=== PATIENT | male | born 1945 | race Two or more races ===

== ENCOUNTER 2020-09-23 14:52 | Inpatient (IN) | payer MEDICARE, BC, OTHER ==
[~2020-09-23] VITALS: Ht 172.7 cm; Wt 95.3 kg
[2020-09-23] MEDS ORDERED: MEMA5TAB42 PO (18:50)
[2020-09-23] MEDS ORDERED: METF-881 PO (18:50)
[2020-09-23] MEDS ORDERED: TAMS-12 PO (18:50)
[2020-09-23] MEDS ORDERED: DONE10TA44 PO (18:50)
[2020-09-23] MEDS ORDERED: SERT-438 PO (18:50)
[2020-09-23] MEDS ORDERED: ATOR40TA PO (18:50)
[2020-09-23] MEDS ORDERED: OLME20TA23 PO (18:50)
[2020-09-23 19:05] VITALS: BP 144/98
--- NOTE | 2020-09-23 19:05 | NUR ---
GPS OFFICE WORKER NOTE: ADMITTED THIS 74-Y/O, MALE, FROM [facility]. PATIENT ADMITTED ON 5150 FOR GD. PER HOLD, PATIENT HAS BEEN EXPRESSING PARANOID THOUGHTS TO HIS FAMILY AND HE'S BEING POISONED AND THAT OTHER PEOPLE ARE OUT TO GET HIM. PT IMPULSIVELY FLEW FROM [place], [place] TO [place] THREE DAYS AGO AND WERE FOUND BY POLICE WANDERING AROUND WITHOUT ANY PANTS ON. UPON FACE TO FACE ASSESSMENT, PATIENT IS A&OX1, ANXIOUS, FLAT AFFECT AND CONFUSED. PATIENT WAS ADVISED OF HIS HOLD. PATIENT IS UNDER THE PSYCH CARE OF DR. LEWIS AND THE MEDICAL CARE OF WORM PACKER SHEELA ZAMARRIPA. PT HANDBOOK GIVEN WITH PATIENT'S RIGHTS AND GUIDE TO PRESCRIPTIONS. PATIENT BELONGINGS WERE INVENTORIED AND CHECKED FOR CONTRABAND. NO MANIFESTATIONS OF PAIN OR DISCOMFORT AT THIS TIME, NO FACIAL GRIMACING NOTED. REFUSED SKIN ASSESSMENT. SAFETY PRECAUTIONS IN PLACE. WILL CONTINUE TO MONITOR Q15MIN ROUNDS FOR SAFETY AND BEHAVIOR. Addendum: 09/24/20 at 0347 by CHIRAG KELLY RN DIAPER CHANGED BY STUDENT ACCOUNTS COORDINATOR AND RN. SKIN ASSESSMENT CHECKED. SKIN IS INTACT. FAMILY NOTIFIED OF PATIENT'S ADMISSION.
[2020-09-23] MEDS ORDERED: MAGNESIUM HYDROXIDE 30 ML UDC PO PRN (19:30)
[2020-09-23] MEDS ORDERED: MAG HYDROX/AL HYDROX/SIMETH 30 ML UDC PO PRN (19:30)
[2020-09-23 19:59] VITALS: BP 144/98
[2020-09-23] MEDS ORDERED: BLOOD SUGAR DIAGNOSTIC 1 EACH STRIP IN ONE (20:00)
[2020-09-23] MEDS: TAMSULOSIN 0.4 MG CAP.SR.24H PO SCH (21:24)
[2020-09-23] MEDS: ATORVASTATIN 40 MG TABLET PO SCH (21:24)
[2020-09-23] MEDS ORDERED: METFORMIN XR 500 MG TAB.SR.24H PO ONE (21:41)
[2020-09-23] MEDS: METFORMIN XR 500 MG TAB.SR.24H PO SCH (21:45)
--- NOTE | 2020-09-24 06:30 | NUR ---
GPS-RN NOTE: NO URINE OUTPUT WHILE SILK WEAVER AND RN RENDERING MORNING CARE TO THE PATIENT. NO URINE OUTPUT NOTED IN HIS DIAPER AND URINAL. ABDOMEN IS DISTENDED UPON ASSESSMENT. SCANNED BLADDER NOTED WITH 999ML OF URINE. 0559 - SUNDAR ZAMARRIPA NOTIFIED THAT PATIENT IS RETAINING URINE 999ML PER BLADDER SCAN AND NO URINE OUTPUT FOR 12 HOURS. 0600 - SUNDAR COKER ORDERED FOR CRUZ CATHETER. INSERTED CRUZ CATH IN ASEPTIC TECHNIQUE BUT UNABLE TO OBTAIN URINE. NO URINE OUTPUT NOTED. V/S TAKEN AND NOTED : V/S BP 131/79, HR 96. 0630 - SUNDAR COKER NOTIFIED, NO URINE OUTPUT NOTED. SUNDAR ZAMARRIPA, STATED WE NEED CRUZ TO MONITOR IF HE WILL HAVE OUTPUT IF NO OUTPUT WILL NEED TO TRANSFER PATIENT. TERRITORY SALES EXECUTIVE WELL AWARE. WILL ENDORSE TO AM SHIFT FOR FOLLOW THROUGH. Addendum: 09/24/20 at 0709 by CHIRAG KELLY RN 0643 - CALLED SUNDAR COKER INFORMED THAT PATIENT IS CONFUSED AND UNCOOPERATIVE WITH THE TREATMENT/PROCEDURES. OBTAINED ORDER FROM CARBOY FILLER FOR ACUTE MEDICAL RESTRAINTS AND TRY TO REINSERT CRUZ. WILL ENDORSE TO AM SHIFT FOR CONTINUITY OF CARE. CHARGE NURSE MADE AWARE. 0650 - ASSISTED PATIENT TO BEDSIDE COMMODE. PATIENT HAD BOWEL MOVEMENT AND NOTED WITH SMALL AMOUNT OF URINE. WILL ENDORSE TO DAY SHIFT NURSE. MAYITO AWARE. Addendum: 09/24/20 at 5154 by CHIRAG KELLY RN SUNDAR COKER AWARE THAT PATIENT HAS PROSTATE CA.
[2020-09-24 08:00] VITALS: BP 125/61
[2020-09-24] MEDS: LOSARTAN POTASSIUM 50 MG TABLET PO SCH (08:19)
[2020-09-24] MEDS: DONEPEZIL 5 MG TABLET PO SCH (08:20)
[2020-09-24 08:59] LABS: BASOPHILS % (AUTO) 0.3 % (0.0-2.0); EOSINOPHILS % (AUTO) 0.2 % (0.0-6.0); HEMATOCRIT 43 % (39-51); HEMOGLOBIN 13.6 g/dL (13.5-17.5); LYMPHOCYTES # (AUTO) 0.5 /CMM (0.8-4.8); LYMPHOCYTES % (AUTO) 4.7 % (20.0-44.0); MEAN CORPUSCULAR HGB CONC 32 g/dl (31.0-36.0); MEAN CORPUSCULAR VOLUME 88 fL (80-96); MONOCYTES # (AUTO) 0.9 /CMM (0.1-1.30); MONOCYTES % (AUTO) 8.1 % (2.0-12.0); NEUTROPHILS # (AUTO) 10.1 /CMM (1.8-8.9); NEUTROPHILS % (AUTO) 86.7 % (43.0-81.0); PLATELET COUNT (AUTO) 191 /CMM (150-450); RED BLOOD CELL COUNT(AUTO) 4.88 MIL/uL (4.5-6.0); WHITE BLOOD COUNT (AUTO) 11.6 K/uL (4.3-11.0)
[2020-09-24 09:10] LABS: CALCIUM, SERUM 9.4 mg/dL (8.5-10.1); CARBON DIOXIDE 23 mmol/L (21-32); CHLORIDE 108 mmol/L (98-107); GLUCOSE 153 mg/dL (74-106); POTASSIUM 3.9 mmol/L (3.5-5.1); SODIUM SERUM 144 mmol/L (136-145); UREA NITROGEN, BLOOD 33 mg/dL (7-18)
[2020-09-24 09:17] LABS: CHOLESTEROL 182 mg/dL (<200); HDL CHOLESTEROL 89 mg/dL (40-60); LDL 82 mg/dL (0-99); TRIGLYCERIDES 69 mg/dL (30-150)
[2020-09-24] MEDS: LORAZEPAM 1 MG TABLET PO PRN (11:04)
--- NOTE | 2020-09-24 11:05 | NUR ---
GPS RN NOTE PATIENT BECAME AGITATED, TRYING TO GET OUT OF JESSICA CHAIR, ADMINISTERED SCHEDULED PRN MEDICATION ATIVAN 1MG, ORDERED. WILL REASSESS PATIENT.
--- NOTE | 2020-09-24 13:32 | NUR ---
GPS RN NOTE PERFORMED BLADDER SCAN ON THE PATIENT, PATIENT HAS MORE THEN 1000ML OF URINE IN THE BLADDER, PATIENT CAN NOT BE ON RESTRAINS PER INFORMATION TECHNOLOGY SECURITY MANAGER. CRUZ CATHETER CAN NOT BE INSERTED, PATIENT IS TO COMBATIVE. MADE MD AWARE. WAITING ON THE RESPONSE ON THE TRANSFER.
--- NOTE | 2020-09-24 13:47 | NUR ---
GPS/RMN-NOTES DR. UMAÑA MADE AWARE OF PATIENT AGGRESSIVE AND COMBATIVE HITTING STAFF WITH BOTH HANDS DURING MANAN CARE WITH T.O ORDER OF ATIVAN 2 MG IM X1 .NOTED AND CARRIED OUT.
[2020-09-24] MEDS ORDERED: LORAZEPAM INJ 2 MG/ML VIAL IM PRN (14:00)
--- NOTE | 2020-09-24 15:24 | NUR ---
GPS RN NOTE CRUZ CATHETER WAS INSERTED SIZE 16 INDONESIAN, WITH 10CC BALLOON INFLATED, PATIENT TOLERATED PROCEDURE WELL, URINE OUTPUT IS 1100ML AT THE MOMENT.
[2020-09-24 15:57] VITALS: BP 137/84
[2020-09-24] MEDS: MEMANTINE HCL 5 MG TABLET PO SCH (18:00)
--- NOTE | 2020-09-24 18:04 | NUR ---
GPS RN NOTE PATIENT IS ASLEEP AFTER THE IM INJECTION OF ATIVAN, PATIENT HAS SCHEDULED ARICEPT, DID NOT ADMINISTERED DUE TO PATIENT BEING SEDATED AT THIS TIME.
--- NOTE | 2020-09-24 18:19 | NUR ---
RN/NOTES RECEIVED T.O ORDER FROM SUNDAR VELA FOR 1:1 SITTER FOR SAFETY AND TO PREVENT PATIENT FROM PULLING F/C.
[2020-09-24 20:00] VITALS: BP 140/91
[2020-09-24] MEDS: TAMSULOSIN 0.4 MG CAP.SR.24H PO SCH (22:00)
[2020-09-24] MEDS: METFORMIN XR 500 MG TAB.SR.24H PO SCH (22:00)
[2020-09-24] MEDS: ATORVASTATIN 40 MG TABLET PO SCH (22:00)
--- NOTE | 2020-09-24 22:01 | NUR ---
RN NOTES: RECEIVED HE WAS IN DEEP SLEEP, WITH CRUZ CATH IN PLACED, DRAINING INTOR DARK YELLOWISH COLORED URINE AT 150CC LEVEL. -WITH 1;1 SITTER AT BED SIDE -REFUSED TO WAKE UP DESPITE NURSES CALLING HIS NAME AND TRYING TO WAKE HIM,HE CONTINUE TO SLEEP, THEN NURSE TRIED AGAIN TO MAKE HIM AWAKE TO TAKE HIS MEDICATION BUT HE WENT BACK TO SLEEP.
--- NOTE | 2020-09-25 06:03 | NUR ---
RN NOTES: -AT 0545 URINE COLLECTED,DARK COLORED URINE WITH LITTLE BLOOD STREAK, HOT STAMP OPERATOR P/U THE SPECIMEN. -AROUND 0600 CHARGE NURSE RECEIVED A PHONE CALL FROM HIS DAUGHTER-ASHWIN/SAMUEL, SHE EXPRESS HER CONCERN REGARDING HER FATHER LOOKING SEDATED, CN TRIED TO EXPLAIN TO HER WHAT IS GOING ON AND WHAT ARE THE MEDICATION GIVEN TO HIM. -SINCE THE START OF THE PULP MACHINE OPERATOR NO ORAL OR IM MEDICATION WAS GIVEN. -ASHWIN/DAUGHTER WANTS TO BE NOTIFIED FIRST BEFORE GIVING ANY SHOTS. -ENDORSED TO NEXT SHIFT PATIENTS CHILDREN MICKY CHRISTOPHER AND JARAD PRINCE CAN HELP HIM CALM DOWN.
[2020-09-25 06:35] LABS: BILIRUBIN,URINE SMALL (NEGATIVE); COLOR,URINE AMBER (YELLOW); LEUKOCYTE ESTERASE ,URINE TRACE (NEGATIVE); NITRITE, URINE NEGATIVE (NEGATIVE); PROTEIN,URINE >=300 mg/dl (NEGATIVE); UGLUCOSE NEGATIVE (NEGATIVE); UROBILINOGEN,URINE 0.2 EU/dL (0.2)
[2020-09-25 07:21] LABS: RBC,URINE TOO NUMEROUS TO COUN /HPF (0-2)
[2020-09-25 07:22] LABS: BACTERIA,URINE Moderate /HPF (None Seen); SQUAMOUS EPITHELIAL CELL,UR Few /HPF (None Seen)
[2020-09-25 08:00] VITALS: BP 125/93
[2020-09-25] MEDS: LOSARTAN POTASSIUM 50 MG TABLET PO SCH ×2 (09:04→09:40)
[2020-09-25] MEDS: DONEPEZIL 5 MG TABLET PO SCH ×2 (09:05→09:40)
[2020-09-25] MEDS: CEPHALEXIN MONOHYDRATE 500 MG CAPSULE PO SCH ×2 (09:40→21:44)
--- NOTE | 2020-09-25 11:40 | NUR ---
RN NOTE PATIENT WAS SITTING IN GERICHAIR WITH TABLE LOCKED WHEN HE GOT AGITATED AND BEGAN TO CLIMB OUT OF THE CHAIR. SYMONE (SIERRA) WAS IN WITH PATIENT AND BEGAN TO YELL FOR HELP. WE WERE UNABLE TO CALM THE PATIENT DOWN. PATIENT HAD PRN ATIVAN INJ. PER CHARGE DID NOT GIVE IT. [facility] WAS CALLED AND NOTIFIED FOR ORDERS. ORDERED THORAZINE. CALLED PHARMACY TWICE TO VERIFY ORDER. SHORTLY LATER RECEIVED A CALL FROM PHARMACY INFORMING ME THAT THEY DID NOT HAVE THORAZINE. CALLED MD AGAIN FOR NEW ORDERS, GAVE BENADRYL 25MG AND HALDOL 5MG.
--- NOTE | 2020-09-25 11:50 | NUR ---
RN-CO: PATIENT WAS THROWING HIMSELF ON THE FLOOR, WANTS TO RUN TOWARDS THE HALLWAY AND WANTED TO AWOL. HE TRIED TO PULL HIS CRUZ CATHETER. FEMALE SITTER AND STAFF CANNOT HANDLE HIM. HE REFUSED TO TAKE PO ATIVAN. WE CALLED [facility], PAGED DR LEWIS AND ORDERED HALDOL 5 MG IM AND BENADRYL 25 MG IM STAT. NOTICED INEFFECTIVE AFTER AN HOUR. WE CALLED MD AGAIN AND NOTIFIED HIM THAT THE SHOT DID NOT HELP HIM. STATED " I WILL GO SEE HIM AND EXAMINE HIM, NO SHOT FOR NOW." RN AND SITTER ALONG WITH THE RECYCLING DIRECTOR IS TRYING TO STOP THE PATIENT FROM RUNNING NAKED AND PULLING HIS CATHETER. WE WILL CLOSELY MONITOR HIM AND MAKE SURE HIS NEEDS ARE ATTENDED.
[2020-09-25] MEDS ORDERED: HALOPERIDOL LACTATE INJ 5 MG/ML VIAL IM STA (11:53)
[2020-09-25] MEDS ORDERED: diphenhydrAMINE HCL 50 MG/ML VIAL IV PRN (12:00)
--- NOTE | 2020-09-25 13:40 | NUR ---
RN-CO: Lucia MACARIO made aware of the code vega and patient's behavior.
[2020-09-25] MEDS: LORAZEPAM 1 MG TABLET PO PRN (14:46)
--- NOTE | 2020-09-25 15:30 | NUR ---
RN NOTE PATIENT STILL AGITATED AND RESTLESS. MD NOTIFIED FOR ORDERS. PER DR LEWIS WAIT UNTIL HE DOES ROUNDS SO HE CAN EVALUATE THE PATIENT.
--- NOTE | 2020-09-25 15:30 | NUR ---
RN-CO: BENADRYL 25 MG IM AND HALDOL 5 MG IM GIVEN EARLIER WAS INEFFECTIVE, PT REMAINS EXTREMELY RESTLESS,AGITATED, TRYING TO JUMP OUT OF THE CHAIR. REFUSED ASSESSMENT OF HIS CRUZ CATH. 90% OF THE STAFF INCLUDING 1 SECURITY WAS HELPING TO CALM HIM DOWN. DR LEWIS WAS CALLED AND INSTRUCTED NOT TO GIVE ANY SHOT/PT REFUSED PO ANTI AGITATION WELL. MD WANTS TO SEE AND EXAMINED THE PATIENT IN PERSON. WE DON'T HAVE ANY CHOICE BUT TO PLACED PT IN 2 POINT RESTRAINT IN THE SECLUSION ROOM. CIRCULATION WAS CHECKED , PT WAS BREATHING REGULARLY, 2 FINGERS CAN BE INSERTED IN THE RESTRAINT SO THERE IS ENOUGH ROOM FOR THE WRIST TO MOVE A LITTLE. RECRUITER TRIED TO CLEAN HIS PERIANAL AREA SINCE HE HAD A LITTLE BM. WE MADE SURE A STAFF IS SITTING THERE TO OBSERVE HIM. DR LEWIS CAME , SEEN AND EXAMINED HIM, AND ORDERED ZYPREXA AND ATIVAN SHOT. NOTED. WE TRIED TO REMOVED THE LEFT ARM RESTRAINT BUT HE REMAINS UNPREDICTABLE. WE WILL CLOSELY MONITOR .
[2020-09-25] MEDS ORDERED: LORAZEPAM INJ 2 MG/ML VIAL IM STA (15:48)
[2020-09-25] MEDS ORDERED: OLANZAPINE 10 MG VIAL IM STA (15:48)
[2020-09-25 16:00] VITALS: BP 162/92
--- NOTE | 2020-09-25 16:34 | NUR ---
RN-CO: ZYPREXA 10 MG IM AND ATIVAN 2 MG IM WAS GIVEN. PT REMAIN UNPREDICTABLE, VERBALLY ABUSIVE. HE STATED " GO AWAY BITCH! REMAINS RESTLESS , WE TRIED TO RELEASE THE RESTRAINTS BUT HE IS STILL AGITATED. SITTER BESIDE HIM TO ENSURE HIS SAFETY. BED DIMAS WAS OFFERED IF HE NEED TO HAVE A BM
[2020-09-25] MEDS: HALOPERIDOL 5 MG TABLET PO SCH (17:00)
[2020-09-25] MEDS: BENZTROPINE MESYLATE (1 MG) 1 MG TABLET PO SCH (17:00)
--- NOTE | 2020-09-25 17:03 | NUR ---
RN NOTE MEDS GIVEN PER MD ORDER. PATIENT RESTING COMFORTABLY. MORE CALM STILL AGITATED.
--- NOTE | 2020-09-25 17:40 | NUR ---
RN-CO: WE ATTEMPTED TO RELEASE THE RESTRAIN SINCE HE LOOKS CALMER, HOWEVER WHEN WE RELEASE HIM , HE WAS ACTUALLY AWAKE AND ATTEMPTED TO PULL HIS CATHETER. AND GOT SO RESTLESS AGAIN. WE DECIDED TO PUT IT BACK. PERICARE WAS RENDERED. OFFERED FOOD AND DRINK BUT REFUSED. RESPIRATION IS EVEN AND UNLABORED. HE REMAINS AWAKE BUT OCCASIONALLY CLOSES HIS EYES.
[2020-09-25] MEDS: MEMANTINE HCL 5 MG TABLET PO SCH (18:00)
--- NOTE | 2020-09-25 19:40 | NUR ---
GPS RN NOTES: RECEIVED PATIENT IN RESTRAINT AWAKE, A/O X1. PATIENT APPEARS TO BE DOING WELL. PATIENT RELEASED FROM RESTRAINT AT 1930. WRISTS INTACT NO REDNESS OR BRUISES, ANKLE INTACT NO REDNESS OR BRUISES. GOOD CAPILLARY REFILL. PATIENT CLEANED, DIAPER CHANGED. WEEKLY SKIN ASSESSMENT DONE, PICTURES TAKEN. NO S/S OF RESPIRATORY DISTRESS. V/S BP154/72, P100, T98.2, R19, O298%. PATIENT TAKEN TO THE ROOM FOR COMFORT. SAFETY PRECAUTION IN PLACE, 1:1 SITTER IN CLOSE PROXIMITY. WILL CONTINUE TO MONITOR AND REASSESS.
[2020-09-25] MEDS: ATORVASTATIN 40 MG TABLET PO SCH (22:37)
[2020-09-25] MEDS: TAMSULOSIN 0.4 MG CAP.SR.24H PO SCH (22:37)
[2020-09-25] MEDS: METFORMIN XR 500 MG TAB.SR.24H PO SCH (22:39)
--- NOTE | 2020-09-26 01:59 | NUR ---
GPS RN NOTES: ON ADMISSION PATIENT REFUSED SKIN ASSESSMENT. WEEKLY SKIN ASSESSMENT DONE, PATIENT HAS SCRATCHES ON BILATERAL KNEES, SCRATCHES ON RIGHT LOWER LEG AND SCRATCHES ON HIPS AND WAIST. NO DRAINAGE, NO ODOR. PICTURES TAKEN AND PLACED IN PATIENT CHART. MONITOR FOR ANY CHANGES Q-SHIFT AND PRN.
--- NOTE | 2020-09-26 03:10 | NUR ---
GPS RN NOTES: PATIENT HAS CRUZ CATHETER ON (COUDE TYPE) BUT HAS VOIDED LESS THAN 100ML THIS SHIFT. PATIENT HAD A BIG BM AT THE BEGINNING OF THE SHIFT AND A SMALL BM AT ABOUT 0200. PATIENT WAS COMPLAINING OF ABDOMINAL PAIN. PATIENT BLADDER SCAN SHOWS 723ML OF URINE. SUNDAR COKER. HAS BEEN NOTIFIED, AWAITING FURTHER INSTRUCTION. PATIENT IS CURRENTLY SLEEPING. WILL CONTINUE TO MONITOR.
[2020-09-26] MEDS ORDERED: BETHANECHOL CHLORIDE (25 MG) 25 MG TABLET PO ONE (03:30)
--- NOTE | 2020-09-26 04:42 | NUR ---
GPS RN NOTES: SHEELA ORDERED URECHOLINE 25MG 1 TAB ONCE PO BUT PATIENT REFUSED. PER MONITOR IF PATIENT CONTINUE TO HAVE NO OUTPUT PATIENT SHOULD BE TRANSFERRED TO MEDICAL FLOOR. AM SHIFT TO FOLLOW UP. WILL ENDORSE TO AM SHIFT.
--- NOTE | 2020-09-26 07:11 | NUR ---
GPS RN CLOSING NOTES: PATIENT AWAKE, A/O X1. PATIENT SLEPT 6HRS THIS SHIFT. WEEKLY SKIN ASSESSMENT DONE, PICTURES TAKEN AND PLACED IN PATIENT CHART. NO S/S OF DISTRESS. RESPIRATION EVEN AND UNLABORED WITH EQUAL RISE AND FALL OF THE CHEST ON ROOM AIR. ALL PATIENT CARE NEEDS HAVE BEEN MET ANTICIPATED. BED IN LOWEST POSITION AND LOCKED WITH SIDE RAILS UP X2. WILL CONTINUE TO MONITOR FOR SAFETY, MOOD AND BEHAVIOR AND ENDORSE TO AM SHIFT.
--- NOTE | 2020-09-26 07:48 | NUR ---
RN NOTE- AT SHIFT START, PT NOTED TO BE AGITATED, ATTEMPTING TO GET UP "GOTTA USE BATHROOM". ON 1:[address] S[address]TER[address] CRUZ CATHETER IN PLACE ONLY BLOOD IN BAG AND TUBING/ MINIMAL AMOUNT. NO URINE NOTED. [facility] SHIFT SCANNED BLADDER +700 RETAINING. SHEELA ZAMARRIPA ORDERED URECHOLINE AT [facility], PT REFUSED RX. THIS RN ATTEMPTED TO ADVANCE CATHETER AND FLUSH W NO RESULTS. REMOVED CRUZ CATHETER AT THIS TIME PT AGITATED AND HAD PREVIOUSLY PULLED ON IT. CALLED [facility] . AWAITING MD ORDERS.
[2020-09-26 08:00] VITALS: BP 121/87
--- NOTE | 2020-09-26 08:22 | NUR ---
RN NOTE- PT EATING BREAKFAST W 1:1 SITTER AT BEDSIDE. PT CALM . NO ISSUES. PAGED [employer] [facility]MONS FOR ORDERS REGARDING BLADDER ISSUES
--- NOTE | 2020-09-26 08:46 | NUR ---
RN NOTE- KIT SIMMONS CALLED . ORDERED ICU TO INSERT CAUDE CATH. RN POLITICAL RESEARCHER NOTIFIED
[2020-09-26] MEDS: HALOPERIDOL 5 MG TABLET PO SCH ×3 (09:00→16:16)
[2020-09-26] MEDS: BENZTROPINE MESYLATE (1 MG) 1 MG TABLET PO SCH ×3 (09:00→16:16)
[2020-09-26] MEDS: FINASTERIDE (5 MG) 5 MG TABLET PO SCH (09:00)
[2020-09-26] MEDS: CEPHALEXIN MONOHYDRATE 500 MG CAPSULE PO SCH ×2 (09:00→21:31)
[2020-09-26] MEDS: LOSARTAN POTASSIUM 50 MG TABLET PO SCH (09:00)
[2020-09-26] MEDS: DONEPEZIL 5 MG TABLET PO SCH (09:00)
[2020-09-26] MEDS: LORAZEPAM 1 MG TABLET PO PRN ×2 (09:02→17:02)
--- NOTE | 2020-09-26 09:05 | NUR ---
RN NOTE- PT ANIOUS, RESTLESSNESS AND AGITATION. ATIVAN 1 MG GIVEN IN APPLESAUCE
--- NOTE | 2020-09-26 09:56 | NUR ---
DPOA Contact: SW received a call from the pts daughter and DPOA, Zee Dorantes ([phone]), who stated that she wanted an update on the pt. ROGELIO informed her that she has not met with the pt yet but based off of the notes in the system she was able to see that the pt has been receiving IM injections due to inappropriate behavior and a karly vega was called on the pt as well. ROGELIO stated that the pts hold was extended to a 14 day hold and that once there is a discharge date the SW will inform her since she wants the pt to be discharged to her home in [place]. ROGELIO stated that the current plan is to stabilize the pt with medication adjustments and once he is stable the MD will provide a discharge date.
[2020-09-26] MEDS ORDERED: LIDOCAINE 2% JEL UROJET 10 ML MM ONE (10:00)
--- NOTE | 2020-09-26 10:30 | NUR ---
RN NOTE- GUZMAN FROM ICU TO UNIT. INSERTED CAUDE CATHETER. 600 CC COLLIN UA OUTPUT. CLAMPED CATHETER. WILL WAIT FIFTEEN MINUTES AND UNCLAMP. TOLERATED WELL. JANITORIAL ACCOUNT MANAGER IRIS AWARE.
[2020-09-26 10:58] LABS: BASOPHILS % (AUTO) 0.3 % (0.0-2.0); EOSINOPHILS % (AUTO) 0.9 % (0.0-6.0); HEMATOCRIT 42 % (39-51); HEMOGLOBIN 13.4 g/dL (13.5-17.5); LYMPHOCYTES # (AUTO) 1.1 /CMM (0.8-4.8); LYMPHOCYTES % (AUTO) 11.3 % (20.0-44.0); MEAN CORPUSCULAR HGB CONC 32 g/dl (31.0-36.0); MEAN CORPUSCULAR VOLUME 87 fL (80-96); MONOCYTES # (AUTO) 1.2 /CMM (0.1-1.30); MONOCYTES % (AUTO) 12.5 % (2.0-12.0); NEUTROPHILS # (AUTO) 7.1 /CMM (1.8-8.9); PLATELET COUNT (AUTO) 140 /CMM (150-450); WHITE BLOOD COUNT (AUTO) 9.5 K/uL (4.3-11.0)
[2020-09-26 11:07] LABS: CALCIUM, SERUM 9.3 mg/dL (8.5-10.1); CREATININE 1.1 mg/dL (0.6-1.3); POTASSIUM 3.9 mmol/L (3.5-5.1)
--- NOTE | 2020-09-26 11:45 | NUR ---
RN NOTE- CATHETER DRAINING COLLIN UA . 1100 CC IN TOTAL OUTPUT THUS FAR . PT TOLERATING WELL. RESTING QUIETLY .
--- NOTE | 2020-09-26 12:15 | NUR ---
Family Contact: SW received a call from pts daughter, Lisa ([phone]), who stated that she would like to receive information on the pt as well as the pt has a blended family. SW stated that she may receive information as she is the point of contact but most communication will go through with the pts DPOA. SW stated that she will be kept updated.
[2020-09-26 13:56] LABS: CREATININE, URINE 140.4 MG/DL (30.0-125.0); URINE TOTAL PROTEIN 118.3 mg/dL (0-11.9)
[2020-09-26 14:30] LABS: BILIRUBIN,URINE NEGATIVE (NEGATIVE); COLOR,URINE AMBER (YELLOW); LEUKOCYTE ESTERASE ,URINE NEGATIVE (NEGATIVE); NITRITE, URINE NEGATIVE (NEGATIVE); PROTEIN,URINE 100 mg/dl (NEGATIVE); UGLUCOSE NEGATIVE (NEGATIVE); UROBILINOGEN,URINE 0.2 EU/dL (0.2)
[2020-09-26 14:43] LABS: BACTERIA,URINE 1+ /HPF (None Seen); RBC,URINE TOO NUMEROUS TO COUN /HPF (0-2); SQUAMOUS EPITHELIAL CELL,UR Few /HPF (None Seen); WBC,URINE 0-2 /HPF (0-3)
--- NOTE | 2020-09-26 15:30 | NUR ---
RN NOTE- CRUZ DRAINING COLLIN UA. NO COMPLICATIONS
[2020-09-26 15:57] LABS: EOSINOPHIL,URINE Rare
[2020-09-26 16:00] VITALS: BP 149/90
--- NOTE | 2020-09-26 16:41 | NUR ---
Initial Discharge Plan: ROGELIO discussed D/C plan with pt.'s DPOA,Zee Jose E [phone]. Per Zee, the pt. was recently temporarily residing with his sister in [place], [place]. However, Per Zee, she would like the pt. to be discharged to reside with her at [[id number] [place], [place]; [phone]]. It is unknown if the pt. is agreeable. ROGELIO will continue to collaborate with IDT to ensure safe & proper discharge planning.
--- NOTE | 2020-09-26 17:02 | NUR ---
RN NOTE- ANXIETY AGITATION. PULLING AT CATHETER. ATIVAN 1 MG GIVEN.
[2020-09-26] MEDS: MEMANTINE HCL 5 MG TABLET PO SCH (17:55)
--- NOTE | 2020-09-26 18:53 | NUR ---
RN NOTE- PT CALMER RX EFFECTIVE. PO INTAKE GOOD, CRUZ CATHETER PATENT DRAINED 1450 CC COLLIN UA IN TOTAL TODAY.
--- NOTE | 2020-09-26 19:50 | NUR ---
GPS-RN OPENING NOTE: PATIENT SITTING IN A JESSICA-CHAIR AWAKE AND ORIENTED X1. NO ACUTE DISTRESS NOTED. PATIENT REMAINS CONFUSED AND ANXIOUS CRUZ CATHETER PATENT AND INTACT, DRAINING WELL WITH COLLIN YELLOW URINE. REORIENTATION PROVIDED. SAFETY PRECAUTIONS IN PLACE. PATIENT ON 1:1 SITTER AT BEDSIDE FOR SAFETY AND MONITORING. WILL CONTINUE TO MONITOR Q15MIN ROUNDS FOR SAFETY AND BEHAVIOR.
[2020-09-26 20:00] VITALS: BP 120/82
[2020-09-26] MEDS: TAMSULOSIN 0.4 MG CAP.SR.24H PO SCH (21:31)
[2020-09-26] MEDS: ATORVASTATIN 40 MG TABLET PO SCH (21:31)
[2020-09-26] MEDS: METFORMIN XR 500 MG TAB.SR.24H PO SCH (21:32)
[2020-09-27] MEDS: LORAZEPAM 1 MG TABLET PO PRN ×2 (01:33→23:34)
--- NOTE | 2020-09-27 01:33 | NUR ---
GPS RN NOTE: ANXIETY PATIENT IS ANXIOUS AND RESTLESS. PRN ATIVAN 1MG PO GIVEN. WILL CONTINUE TO MONITOR FOR PATIENT'S SAFETY.
--- NOTE | 2020-09-27 06:34 | NUR ---
GPS-RN CLOSING NOTE: PATIENT IN BED ASLEEP. ALERT AND ORIENTED X1. NO S/SX OF ACUTE RESPIRATORY DISTRESS NOTED. PATIENT REMAINS CONFUSED AND DISORGANIZED. CRUZ CATHETER PATENT AND INTACT DRAINING COLLIN YELLOW URINE. MORNING CARE RENDERED, HAD BOWEL MOVEMENT TODAY. ON 1:1 SITTER AT BEDSIDE FOR SAFETY AND MONITORING. SAFETY PRECAUTIONS IN PLACE. WILL CONTINUE TO MONITOR Q15MIN ROUNDS FOR SAFETY AND BEHAVIOR.
[2020-09-27 08:00] VITALS: BP 113/80
[2020-09-27] MEDS: LOSARTAN POTASSIUM 50 MG TABLET PO SCH (09:00)
--- NOTE | 2020-09-27 09:00 | NUR ---
RN NOTE- PT ON 1:1 SITTER. QUIET THIS MORNING, MED COMPLIANT RX CRUSHED IN PUDDING OR APPLESAUCE, EATING AND DRINKING W PROMPTS AND ASSIST. CRUZ TO GRAVITY DRAINING MODERATE AMT COLLIN UA.DISORGANIZED CONFUSED. ASSIST PRN
[2020-09-27] MEDS: FINASTERIDE (5 MG) 5 MG TABLET PO SCH (09:06)
[2020-09-27] MEDS: BENZTROPINE MESYLATE (1 MG) 1 MG TABLET PO SCH ×3 (09:06→16:32)
[2020-09-27] MEDS: DONEPEZIL 5 MG TABLET PO SCH (09:06)
[2020-09-27] MEDS: HALOPERIDOL 5 MG TABLET PO SCH ×3 (09:06→16:32)
[2020-09-27] MEDS: CEPHALEXIN MONOHYDRATE 500 MG CAPSULE PO SCH ×2 (09:06→21:21)
--- NOTE | 2020-09-27 15:15 | NUR ---
DPOA Contact: SW received a call from the pts daughter and DPOA, Zee Dorantes ([phone]), and discussed the pts current treatment status. SW stated that the pt appears to be improving as their were no aggressive moments exhibited today. SW stated that she would keep her updated.
[2020-09-27 16:00] VITALS: BP 96/60
[2020-09-27] MEDS: MEMANTINE HCL 5 MG TABLET PO SCH (17:41)
--- NOTE | 2020-09-27 18:14 | NUR ---
RN NOTE- PT MUCH MORE INTERACTIVE LESS CONFUSED MED COMPLIANT, DIRECTABLE. PO INTAKE GOOD , CRUZ DRAINING YELLOW UA 450 CC OUTPUT .
--- NOTE | 2020-09-27 19:05 | NUR ---
GPS-RN OPENING NOTE: PATIENT SITTING IN A JESSICA-CHAIR AWAKE AND ORIENTED X1. PT'S DAUGHTER AT BEDSIDE. NO ACUTE DISTRESS NOTED. PATIENT REMAINS CONFUSED AND DISORGANIZED. CRUZ CATHETER PATENT AND INTACT, DRAINING WELL WITH COLLIN YELLOW URINE. REORIENTATION PROVIDED. SAFETY PRECAUTIONS IN PLACE. PATIENT ON 1:1 SITTER AT BEDSIDE FOR SAFETY AND MONITORING. WILL CONTINUE TO MONITOR Q15MIN ROUNDS FOR SAFETY AND BEHAVIOR.
[2020-09-27 20:58] VITALS: BP_SYST 104; BP_SYST 131; BP_DIAS 69; BP_DIAS 79
[2020-09-27] MEDS: METFORMIN XR 500 MG TAB.SR.24H PO SCH (21:21)
[2020-09-27] MEDS: TAMSULOSIN 0.4 MG CAP.SR.24H PO SCH (21:21)
[2020-09-27] MEDS: ATORVASTATIN 40 MG TABLET PO SCH (21:21)
--- NOTE | 2020-09-27 23:34 | NUR ---
GPS-RN NOTE: ANXIETY PATIENT IS VERY ANXIOUS, RESTLESS AND TRYING TO GET OOB. PRN ATIVAN 1MG PO GIVEN ORDERED. WILL CONTINUE TO MONITOR FOR PATIENT'S SAFETY. Addendum: 09/28/20 at 0639 by CHIRAG KELLY RN PATIENT WAS TRYING TO PULL OUT HIS CATHETER.
[2020-09-28] MEDS: TEMAZEPAM 7.5 MG CAPSULE PO PRN ×2 (00:40→22:04)
[2020-09-28] MEDS: ACETAMINOPHEN 325 MG TABLET PO PRN (00:41)
--- NOTE | 2020-09-28 00:41 | NUR ---
GPS-RN NOTE: MED REFUSAL PATIENT SPIT OUT THE MEDS RESTORIL 7.5MG PO AND ACETAMINOPHEN 650MG PO ORDERED. EXPLAINED RISKS AND BENEFITS BUT PATIENT CONTINUED TO REFUSE. PATIENT REMAINS CONFUSED AND DISORGANIZED. WASTED RESTORIL IN PYXIS AND WITNESSED BY ANOTHER RN FOR MED DISPOSAL.
--- NOTE | 2020-09-28 06:39 | NUR ---
GPS-RN CLOSING NOTE: PATIENT SITTING IN A JESSICA-CHAIR. ALERT AND ORIENTED X1. NO S/SX OF ACUTE RESPIRATORY DISTRESS NOTED. PATIENT REMAINS CONFUSED AND DISORGANIZED. CRUZ CATHETER PATENT AND INTACT DRAINING WELL BY GRAVITY WITH URINE OUTPUT OF 300ML. MORNING CARE RENDERED, PT HAD BOWEL MOVEMENT TODAY. ON 1:1 SITTER AT BEDSIDE FOR SAFETY AND MONITORING. SAFETY PRECAUTIONS IN PLACE. WILL CONTINUE TO MONITOR Q15MIN ROUNDS FOR SAFETY AND BEHAVIOR.
[2020-09-28 06:51] LABS: CALCIUM, SERUM 9.2 mg/dL (8.5-10.1); POTASSIUM 3.9 mmol/L (3.5-5.1)
--- NOTE | 2020-09-28 07:30 | NUR ---
PT RECEIVED RESTING COMFORTABLY IN BED. NO S/S OR C/O PAIN OR DISTRESS NOTED. SIDE RAILS UP X2, WILL CONTINUE PLAN OF CARE.
[2020-09-28 08:00] VITALS: BP 113/60
[2020-09-28] MEDS: BENZTROPINE MESYLATE (1 MG) 1 MG TABLET PO SCH ×3 (08:07→16:54)
[2020-09-28] MEDS: CEPHALEXIN MONOHYDRATE 500 MG CAPSULE PO SCH ×2 (08:08→21:15)
[2020-09-28] MEDS: HALOPERIDOL 5 MG TABLET PO SCH ×3 (08:08→16:54)
[2020-09-28] MEDS: LOSARTAN POTASSIUM 50 MG TABLET PO SCH (08:08)
[2020-09-28] MEDS: DONEPEZIL 5 MG TABLET PO SCH (08:08)
[2020-09-28] MEDS: FINASTERIDE (5 MG) 5 MG TABLET PO SCH (08:10)
[2020-09-28] MEDS: LORAZEPAM 1 MG TABLET PO PRN ×2 (08:45→23:18)
--- NOTE | 2020-09-28 09:11 | NUR ---
Family Contact: SW received a call from pts daughter, Lisa ([phone]), who stated that she wanted to know what the discharge recommendation was. SW stated that the SW spoke with the MD and informed him that the pts plan was to be discharged to the DPOA's house and the MD did not show any concerns with that plan. SW stated that home care help would be needed if the family needs extra support and stated that the SW does not know about resources in [place] but can do some research for the family. SW stated that she will keep them updated on the treatment.
--- NOTE | 2020-09-28 09:56 | NUR ---
Probable Cause Hearing: Pts 5250 hold was upheld for grave disability.
[2020-09-28 16:00] VITALS: BP 117/76
[2020-09-28] MEDS: MEMANTINE HCL 5 MG TABLET PO SCH (17:02)
--- NOTE | 2020-09-28 18:47 | NUR ---
CHANGE OF SHIFT REPORT PT RESTING COMFORTABLY IN CHAIR. NO S/S OR C/O PAIN OR DISTRESS NOTED. SIDE RAILS UP X2, PT KEPT CLEAN, DRY, AND COMFORTABLE. NO SIGNIFICANT CHANGE SINCE PREVIOUS SHIFT.
--- NOTE | 2020-09-28 19:30 | NUR ---
GPS RN NOTES RECEIVED ON JESSICA CHAIR A/O X1-2,CONFUSED,FALL RISK,WITH SITTER FOR SAFETY,NOTED CRUZ CATH IN PLACED DRAINING PINKISH OUTPUT.FALL RISK,ABLE TO TRANSFER FROM JESSICA CHAIR TO BED WITH ASSIST.WILL CONTINUE TO MONITOR BEHAVIOR.
[2020-09-28] MEDS: ATORVASTATIN 40 MG TABLET PO SCH (21:15)
[2020-09-28] MEDS: TAMSULOSIN 0.4 MG CAP.SR.24H PO SCH (21:15)
[2020-09-28] MEDS: METFORMIN XR 500 MG TAB.SR.24H PO SCH (21:15)
--- NOTE | 2020-09-28 22:04 | NUR ---
GPS RN NOTES STILL AWAKE,RESTORIL 7.5MG PO GIVEN WITH APPLE SAUCE
--- NOTE | 2020-09-28 23:18 | NUR ---
GPS RN NOTES STILL AWAKE,APPEARS ANXIOUS,ATIVAN 1MG PO GIVEN ORDERED,SITTER AT BEDSIDE
--- NOTE | 2020-09-29 02:45 | NUR ---
GPS RN NOTES BACK TO BED THIS TIME,CRUZ CATH DRAINS PINKISH URINE.
[2020-09-29] MEDS: HALOPERIDOL 5 MG TABLET PO SCH ×3 (08:38→16:28)
[2020-09-29] MEDS: DONEPEZIL 5 MG TABLET PO SCH (08:38)
[2020-09-29] MEDS: FINASTERIDE (5 MG) 5 MG TABLET PO SCH (08:38)
[2020-09-29] MEDS: CEPHALEXIN MONOHYDRATE 500 MG CAPSULE PO SCH ×2 (08:38→22:04)
[2020-09-29] MEDS: LORAZEPAM 1 MG TABLET PO PRN (08:38)
[2020-09-29] MEDS: BENZTROPINE MESYLATE (1 MG) 1 MG TABLET PO SCH ×3 (08:39→16:28)
[2020-09-29] MEDS: LOSARTAN POTASSIUM 50 MG TABLET PO SCH (08:39)
[2020-09-29 16:00] VITALS: BP 133/76
[2020-09-29] MEDS: MEMANTINE HCL 5 MG TABLET PO SCH (17:01)
[2020-09-29 18:01] LABS: CALCIUM, SERUM 9.1 mg/dL (8.5-10.1); CREATININE 0.9 mg/dL (0.6-1.3); POTASSIUM 4.5 mmol/L (3.5-5.1)
--- NOTE | 2020-09-29 20:00 | NUR ---
NURSES NOTES: RECEIVED PATIENT FROM DAY SHIFT, WITH CRUZ CATHETER IN PLACE, PATIENT NOTED TO BE CONFUSED AND 1:1 SITTER IN CLOSE PROXIMITY. PER DAY SHIFT RN, PATIENT HAD 100 ML URINE OUTPUT. YARD STOCKER THEN INFORMED HODAN ARROYO NP REGARDING THIS SAID SITUATION. AT [facility], DRILL OPERATOR AUTOMATIC ORDERED FOR CATHETER BALLOON TO BE DEFLATED AND ADVANCED FURTHER THIS PATIENT HAS THE TENDENCY TO BE PULLING HIS CATHETER. YARD STOCKER WAS DOING THIS SAID ORDER, PATIENT WAS ACTUALLY REFUSING TO COOPERATE WITH THE STAFF. AT [facility], SUNDAR THEN GAVE AN ORDER FOR ACUTE MEDICAL RESTRAINTS FOR BOTH WRISTS AND BOTH LEGS. AT THIS POINT., THERE WAS STILL NO OUTPUT NOTED. SUNDAR ARROYO THEN ORDERED. REINSERTION OF THE CRUZ CATH. SINCE THIS PATIENT HAS HISTORY OF PROSTATE CANCER AN ER STAFF CAME TO THE UNIT TO INSERT THE COUDE CATHETER FR18. AN INITIAL OUTPUT OF 700 ML DARK TEA COLORED UNRINE WAS DRAINED. TUBE WAS THEN CLAMPED FOR AN HOUR TO PREVENT HYPOTENSION. HODAN ARROYO NP UPDATED. VITAL SIGNS CHECKED AND RECORDED. NURSING INTERVENTIONS FOR PATIENTS ON RESTRAINTS FOLLOWED. WILL CONTINUE TO MONITOR THIS PATIENT.
[2020-09-29 20:19] VITALS: BP 111/58
[2020-09-29] MEDS: TAMSULOSIN 0.4 MG CAP.SR.24H PO SCH (22:04)
[2020-09-29] MEDS: ATORVASTATIN 40 MG TABLET PO SCH (22:04)
[2020-09-29] MEDS: METFORMIN XR 500 MG TAB.SR.24H PO SCH (22:04)
[2020-09-29] MEDS: TEMAZEPAM 7.5 MG CAPSULE PO PRN (22:12)
[2020-09-29] MEDS ORDERED: LIDOCAINE 2% JEL UROJET 10 ML MM ONE (22:30)
[2020-09-29 23:00] VITALS: BP 117/85
[2020-09-30 03:00] VITALS: BP 152/78
--- NOTE | 2020-09-30 03:00 | NUR ---
NURSES NOTES: CIRCULATION ON BOTH UPPER AND LOWER EXTREMITIES CHECKED. NO SKIN BREAKDOWN NOTED. CIRCULATION IS NOT COMPROMISED OBSERVED AT THIS TIME. PATIENT CONTINUES TO MOVE HIS HANDS TRYING TO PULL HIS CATHETER. LEFT ANKLE RESTRAINT RELEASED AT THIS TIME.WILL CONTINUE TO MONITOR PATIENT'S BEHAVIOR.
[2020-09-30 08:00] VITALS: BP_SYST 139; BP_SYST 156; BP_DIAS 77; BP_DIAS 89
[2020-09-30] MEDS: BENZTROPINE MESYLATE (1 MG) 1 MG TABLET PO SCH ×3 (08:48→17:01)
[2020-09-30] MEDS: HALOPERIDOL 5 MG TABLET PO SCH ×4 (08:48→21:24)
[2020-09-30] MEDS: FINASTERIDE (5 MG) 5 MG TABLET PO SCH (08:48)
[2020-09-30] MEDS: CEPHALEXIN MONOHYDRATE 500 MG CAPSULE PO SCH ×2 (08:48→21:24)
[2020-09-30] MEDS: DONEPEZIL 5 MG TABLET PO SCH (08:48)
[2020-09-30] MEDS: LOSARTAN POTASSIUM 50 MG TABLET PO SCH (08:48)
[2020-09-30 16:00] VITALS: BP 134/82
[2020-09-30] MEDS: LORAZEPAM 1 MG TABLET PO PRN ×2 (17:01→22:24)
--- NOTE | 2020-09-30 17:32 | NUR ---
MS/RN NOTE PATIENT VERY AGITATED, UNCOOPERATIVE, TRYING TO GET OUT OF BED AND GERICHAIR. ATIVAN PRN WAS GIVEN.
[2020-09-30] MEDS: MEMANTINE HCL 5 MG TABLET PO SCH (18:12)
--- NOTE | 2020-09-30 20:00 | NUR ---
RN NOTES RESTLESS, UNABLE TO DIRECT BEHAVIOR, RISK OF PULLING CRUZ CATHETER, ON JESSICA-CHAIR, ONE ON ONE SITTER, TALKING TO SELF. BEING MONITORED CLOSELY FOR SAFETY.
[2020-09-30] MEDS: TAMSULOSIN 0.4 MG CAP.SR.24H PO SCH (21:24)
[2020-09-30] MEDS: METFORMIN XR 500 MG TAB.SR.24H PO SCH (21:24)
[2020-09-30] MEDS: ATORVASTATIN 40 MG TABLET PO SCH (21:25)
[2020-09-30] MEDS: TEMAZEPAM 7.5 MG CAPSULE PO PRN (23:44)
--- NOTE | 2020-10-01 06:41 | NUR ---
RN NOTES RESTLESS, TALKING TO SELF ALL NIGHT, GIVEN ALL PM MEDS + RESTORIL AND ATIVAN. BM X2, CRUZ CATHETER OUTPUT 475 ML. SITTER AT THE BEDSIDE FOR SAFETY
[2020-10-01 08:00] VITALS: BP 134/77
--- NOTE | 2020-10-01 08:48 | NUR ---
Called Dr. Briceno and clarified the Haldol order and ordered Haldol 5 mg po in AM, Haldol 5 mg at 1:00 pm and Haldol 10 mg po at bedtime and same order of the Cogentin in AM at 1:00 pm and bedtime.
[2020-10-01] MEDS: DONEPEZIL 5 MG TABLET PO SCH (09:00)
[2020-10-01] MEDS: CEPHALEXIN MONOHYDRATE 500 MG CAPSULE PO SCH ×2 (09:00→20:43)
[2020-10-01] MEDS: LOSARTAN POTASSIUM 50 MG TABLET PO SCH (09:00)
[2020-10-01] MEDS: FINASTERIDE (5 MG) 5 MG TABLET PO SCH (09:00)
[2020-10-01] MEDS ORDERED: HALOPERIDOL 5 MG TABLET PO SCH ×2 (09:00)
[2020-10-01] MEDS: BENZTROPINE MESYLATE (1 MG) 1 MG TABLET PO SCH ×3 (09:00→21:11)
[2020-10-01] MEDS ORDERED: BENZTROPINE MESYLATE (1 MG) 1 MG TABLET PO SCH (09:00)
[2020-10-01] MEDS: HALOPERIDOL 5 MG TABLET PO SCH ×3 (09:00→21:00)
--- NOTE | 2020-10-01 11:30 | NUR ---
RN NOTE: PATIENT VERY AGITATED, UNCOOPERATIVE, TRYING TO GET OUT OF BED . ATIVAN PRN WAS GIVEN.
[2020-10-01] MEDS: LORAZEPAM 1 MG TABLET PO PRN (11:39)
--- NOTE | 2020-10-01 11:40 | NUR ---
GPS RN NOTE PATIENT AWAKE, FIGHTING STAFF WHILE TRYING TO DRESS AND CLEAN PATIENT. PATIENT STRUGGLING TO COOPERATE. PRN ATIVAN GIVEN.
[2020-10-01 16:00] VITALS: BP 124/77
[2020-10-01] MEDS: MEMANTINE HCL 5 MG TABLET PO SCH (17:11)
--- NOTE | 2020-10-01 19:37 | NUR ---
GPS RN NOTES RECEIVED PT AWAKE AND IN JESSICA CHAIR IN THE SIU WAY WITH CAREFUL MONITORING OF RN, NO S/S OR COMPLAINTS OF PAIN AT THIS TIME. PT IS DISPLAYING NO S/S OF APPARENT DISTRESS AT THIS TIME. PT BREATHING IS UNLABORED WITH EQUAL RISING AND FALLING OF THE CHEST. PT IS ALERT AND ORIENTED X-1 CONFUSED MUMBLING TO HIMSELF COMPLIANT AND COOPERATIVE.ON ROOM AIR TOLERATING WELL. PT DENIES ANY SUICIDAL IDEATION AND HOMICIDAL IDEATION AT THIS TIME. ALL PT NEEDS ATTENDED TO AT THIS TIME. SAFETY MEASURES FOLLOWED AT ALL TIMES. WILL CONTINUE TO MONITOR Q15 MINS WITH THE HELP OF STAFF TO MAINTAIN SAFETY.
[2020-10-01 20:00] VITALS: BP 122/92
[2020-10-01 20:24] VITALS: BP 116/58
[2020-10-01] MEDS: METFORMIN XR 500 MG TAB.SR.24H PO SCH (21:00)
[2020-10-01] MEDS: ATORVASTATIN 40 MG TABLET PO SCH (21:00)
[2020-10-01] MEDS: TAMSULOSIN 0.4 MG CAP.SR.24H PO SCH (21:01)
[2020-10-01] MEDS: TEMAZEPAM 7.5 MG CAPSULE PO PRN (22:51)
[2020-10-02] MEDS: TEMAZEPAM 7.5 MG CAPSULE PO PRN (00:30)
[2020-10-02] MEDS: LORAZEPAM 1 MG TABLET PO PRN ×3 (05:36→17:07)
--- NOTE | 2020-10-02 06:25 | NUR ---
GPS RN NOTES PT AWAKE AND IN JESSICA CHAIR IN THE [address] WAY WITH CAREFUL MONITORING OF RN, NO S/S OR COMPLAINTS OF PAIN AT THIS TIME. PT IS DISPLAYING NO S/S OF APPARENT DISTRESS AT THIS TIME. PT BREATHING IS UNLABORED WITH EQUAL RISING AND FALLING OF THE CHEST. PT IS ALERT AND ORIENTED X-1 CONFUSED MUMBLING TO HIMSELF COMPLIANT WITH MEDICATIONS.ON ROOM AIR TOLERATING WELL. PT DENIES ANY SUICIDAL IDEATION AND HOMICIDAL IDEATION AT THIS TIME. ALL PT NEEDS ATTENDED TO AT THIS TIME. PT ASSISTED WITH REPOSITIONING FOR COMFORT Q2HR. PRN MEDICATIONS GIVEN RESTORIL AND ATIVAN TOLERATED WELL NO DROWSINESS OBSERVED. SAFETY MEASURES FOLLOWED AT ALL TIMES. PT MONITORED THROUGHOUT SHIFT Q15 MINS WITH THE HELP OF STAFF TO MAINTAIN SAFETY. WILL ENDORSE CARE TO DAY SHIFT NURSE. Addendum: 10/02/20 at 0657 by ANGELINA LOVE RN PT IS NOW IN BED ASLEEP. BED ALARM ON .BILATERAL SIDE RAILS UP X2 FOR SAFETY.
[2020-10-02 08:00] VITALS: BP 120/74
[2020-10-02] MEDS: DONEPEZIL 5 MG TABLET PO SCH (09:05)
[2020-10-02] MEDS: FINASTERIDE (5 MG) 5 MG TABLET PO SCH (09:05)
[2020-10-02] MEDS: CEPHALEXIN MONOHYDRATE 500 MG CAPSULE PO SCH ×2 (09:05→21:23)
[2020-10-02] MEDS: HALOPERIDOL 5 MG TABLET PO SCH ×3 (09:05→21:23)
[2020-10-02] MEDS: BENZTROPINE MESYLATE (1 MG) 1 MG TABLET PO SCH ×3 (09:05→21:23)
[2020-10-02] MEDS: LOSARTAN POTASSIUM 50 MG TABLET PO SCH (09:06)
[2020-10-02 15:59] VITALS: BP 134/93
[2020-10-02] MEDS: MEMANTINE HCL 5 MG TABLET PO SCH (17:07)
--- NOTE | 2020-10-02 18:31 | NUR ---
PATIENT IN [facility] CATH NOTICED URINE OUT PUT 75CC, INFORMED .
--- NOTE | 2020-10-02 20:00 | NUR ---
GPS-RN NOTE: PATIENT REFUSED SKIN WEEKLY ASSESSMENT.
[2020-10-02] MEDS: METFORMIN XR 500 MG TAB.SR.24H PO SCH (21:23)
[2020-10-02] MEDS: ATORVASTATIN 40 MG TABLET PO SCH (21:23)
[2020-10-02] MEDS: TAMSULOSIN 0.4 MG CAP.SR.24H PO SCH (21:23)
--- NOTE | 2020-10-02 23:10 | NUR ---
GPS-RN NOTES: PATIENT WITH CRUZ CATHETER PATENT AND INTACT, PER ENDORSEMENT FROM DAY SHIFT NURSE, PATIENT HAD 75ML URINE. PT REMAINS CONFUSED AND DISORGANIZED. ONE TO ONE SITTER AT BEDSIDE FOR SAFETY AND MONITORING. PERFORMED BLADDER SCAN PT. HAS MORE THAN 850ML OF URINE IN THE BLADDER. 1:1 SITTER CALLED TO MY ATTENTION THAT PT PULLED OUT HIS CRUZ CATHETER. NOTED WITH SCANT AMOUNT OF BLEEDING. PAGED FISH BAIT PROCESSING SUPERVISOR HODAN, AWAITING FOR RESPONSE. 8732 - FISH BAIT PROCESSING SUPERVISOR HODAN ARROYO CALLED BACK AND NOTIFIED THAT PATIENT PULLED OUT HIS CATHETER WITH ORDER TO REINSERT CRUZ CATHETER. RECOMMENDATION MADE TO FISH BAIT PROCESSING SUPERVISOR IF SHE WANTS TO TRANSFER PT TO MEDICAL FLOOR AND SHE STATED NO NEED TO TRANSFER. ER NURSE CAME TO THE UNIT TO REINSERT CATHETER SIZE 18 JAP[place]ESE WITH 10CC BALLOON INFLATED. AN INITIAL OUTPUT OF 450ML DRAINING COLLIN YELLOW COLORED URINE BY GRAVITY. TUBE WAS THEN CLAMPED FOR AN HOUR. VITAL SIGNS TAKEN AND RECORDED. WILL CONTINUE TO MONITOR PATIENT'S SAFETY.
[2020-10-03] MEDS ORDERED: LIDOCAINE 2% JEL UROJET 10 ML MM ONE (00:30)
[2020-10-03 08:00] VITALS: BP 96/65
--- NOTE | 2020-10-03 08:44 | NUR ---
DPOA Contact: ROGELIO called the pts daughter and DPOA, Zee Dorantes ([phone]), and was unable to make contact or leave a voicemail message.
--- NOTE | 2020-10-03 08:44 | NUR ---
Family Contact: SW call pts daughter, Lisa ([phone]), and informed her that she is having a difficult time contacting the pts SAMUEL Koch. SW asked if a message could be sent to her with the SW's number so that contact could be made. SW informed this daughter that the pt is going to be discharged as soon as orange picking supervisor can be arranged.
[2020-10-03] MEDS: BENZTROPINE MESYLATE (1 MG) 1 MG TABLET PO SCH ×3 (08:58→21:01)
[2020-10-03] MEDS: LOSARTAN POTASSIUM 50 MG TABLET PO SCH (08:58)
[2020-10-03] MEDS: DONEPEZIL 5 MG TABLET PO SCH (08:58)
[2020-10-03] MEDS: HALOPERIDOL 5 MG TABLET PO SCH ×3 (08:58→21:01)
[2020-10-03] MEDS: FINASTERIDE (5 MG) 5 MG TABLET PO SCH (08:58)
[2020-10-03 09:11] LABS: CALCIUM, SERUM 8.9 mg/dL (8.5-10.1); POTASSIUM 4.1 mmol/L (3.5-5.1)
--- NOTE | 2020-10-03 10:15 | NUR ---
DPOA Contact: Pts daughter and DPOA, Zee Dorantes ([phone]), called the SW and stated that she heard from her sister that the SW is trying to contact her. SW stated that she was attempting to call her and inform her that the pt is going to be discharged tomorrow. SW stated that she wanted to receive some information on what the pts aftercare will be like when he is home with her in [place]. Pts daughter stated that she will have caregivers in the home and is also in the process of hiring nurses to administer the pts medications. Pts daughter also stated that the pt is going to keep the same medical provider at this time who has agreed to be in the care until a new one can be secured.
--- NOTE | 2020-10-03 15:15 | NUR ---
DPOA Contact: Pts daughter and DPOA, Zee Dorantes ([phone]), called the SW and stated that she booked airline tickets and will be coming to fruit or nut picker the pt around 11AM the following day. SW stated that she will arrange the discharge for that time.
[2020-10-03] MEDS: MEMANTINE HCL 5 MG TABLET PO SCH (17:02)
[2020-10-03] MEDS: LORAZEPAM 1 MG TABLET PO PRN (17:02)
[2020-10-03 20:00] VITALS: BP 109/61
[2020-10-03] MEDS: ACETAMINOPHEN 325 MG TABLET PO PRN (20:42)
[2020-10-03] MEDS: ATORVASTATIN 40 MG TABLET PO SCH (21:01)
[2020-10-03] MEDS: METFORMIN XR 500 MG TAB.SR.24H PO SCH (21:01)
[2020-10-03] MEDS: TAMSULOSIN 0.4 MG CAP.SR.24H PO SCH (21:01)
--- NOTE | 2020-10-04 00:12 | NUR ---
GPS-RN NOTES: PATIENT ON CRUZ CATHETER PATENT AND INTACT DRAINING BLOODY URINE WITH OUTPUT OF 60ML. PT REMAINS CONFUSED AND DISORGANIZED. ONE TO ONE SITTER AT BEDSIDE FOR SAFETY AND MONITORING. PERFORMED BLADDER SCAN PT. HAS MORE THAN 200ML OF URINE IN THE BLADDER. PRESIDENT AND CEO HODAN ARROYO NOTIFIED OF THE FINDING ASSESSMENT WITH ORDERS TO FLUSH, REPOSITION AND TROUBLE SHOOT THE CRUZ CATHETER THEN IT'S PROBLEM CLOGGED AND NEEDS TO BE REPLACED. TRIED TO TROUBLE SHOOT CRUZ CATHETER BUT IT WAS UNSUCCESSFUL. CHARGE NURSE AWARE. REPLACED CRUZ CATHETER WITH THE HELP OF ER NURSE CAME TO THE UNIT TO REINSERT CATHETER SIZE 18 BELARUSIAN WITH 10CC BALLOON INFLATED. AN INITIAL OUTPUT OF 350ML DRAINING CLEAR YELLOW COLORED URINE BY GRAVITY. TUBE WAS THEN CLAMPED FOR AN HOUR. V/S TAKEN AND RECORDED. WILL CONTINUE TO MONITOR FOR PATIENT'S SAFETY. CHARGE NURSE MADE AWARE.
[2020-10-04] MEDS ORDERED: LIDOCAINE 2% JEL UROJET 10 ML MM ONE ×2 (00:30→01:30)
[2020-10-04] MEDS ORDERED: LIDOCAINE 2% JEL 5 ML TUBE ONE (01:28)
--- NOTE | 2020-10-04 07:30 | NUR ---
GPS-RN NOTE: CHARGE NURSE CALLED JOSE SPENCE REGARDING PATIENT'S DISCHARGE. PER JOSE, SHE SPOKE WITH DR. LEWIS AND PATIENT WILL BE LEAVING TODAY. PATIENT'S DAUGHTER ASHWIN MADE AWARE OF THE DISCHARGE.
[2020-10-04 08:00] VITALS: BP 112/76
--- NOTE | 2020-10-04 08:30 | NUR ---
Family Contact: Pts daughter, Lisa ([phone]), called the SW this morning and stated that she wanted to be involved in the discharge planning of the pt. She stated that she visited the pt yesterday and noticed that there was blood in his catheter. Pts daughter stated that she does not feel that the pt is in any condition to be discharged and to travel today. SW stated that the nurses are calling the urologist to see the pt and if the pt is cleared for discharge the pt will be discharged.
[2020-10-04] MEDS: LOSARTAN POTASSIUM 50 MG TABLET PO SCH (09:00)
--- NOTE | 2020-10-04 09:50 | NUR ---
basurto cath removed per order of dr. melton nephkajal salesperson hearing aids
--- NOTE | 2020-10-04 10:15 | NUR ---
DPOA Contact: ROGELIO called the pts daughter and DPOA, Zee Dorantes ([phone]), and informed her that the pt was seen by the Urologist who stated that he wanted the pts basurto to be taken out and that he wants to evaluate if the pt can urinate on his own in the next four hours. ROGELIO stated that she will keep her updated on whether or not the pt can be discharged today or not.
[2020-10-04] MEDS: BENZTROPINE MESYLATE (1 MG) 1 MG TABLET PO SCH ×4 (10:39→21:01)
[2020-10-04] MEDS: HALOPERIDOL 5 MG TABLET PO SCH ×4 (10:39→17:00)
[2020-10-04] MEDS: MEMANTINE HCL 5 MG TABLET PO SCH (10:39)
[2020-10-04] MEDS: FINASTERIDE (5 MG) 5 MG TABLET PO SCH (10:39)
[2020-10-04] MEDS: DONEPEZIL 5 MG TABLET PO SCH (10:40)
--- NOTE | 2020-10-04 12:05 | NUR ---
DPOA Contact: ROGELIO called the pts daughter and DPOA, Zee Dorantes ([phone]), and inquired about what pharmacy she will be using to picker / packer her dad's medications. She stated that [facility] is: [address], [place] [address]; Phone number: .
[2020-10-04] MEDS: LORAZEPAM 1 MG TABLET PO PRN ×2 (12:44→21:01)
--- NOTE | 2020-10-04 13:00 | NUR ---
refused afternoon meds,dr. mendoza called injections ordered.
--- NOTE | 2020-10-04 13:10 | NUR ---
dr. mendoza called,pt. started to get restless and very agitated.requests to leave.becoming louder and fighting nurses with taking of meds and food.
[2020-10-04] MEDS ORDERED: LORAZEPAM INJ 2 MG/ML VIAL IM ONE (13:30)
[2020-10-04] MEDS ORDERED: diphenhydrAMINE HCL 50 MG/ML VIAL IM ONE (13:30)
[2020-10-04] MEDS ORDERED: HALOPERIDOL LACTATE INJ 5 MG/ML VIAL IM ONE (13:30)
--- NOTE | 2020-10-04 13:35 | NUR ---
DPOA Contact: ROGELIO called the pts daughter and DPOA, Zee Dorantes ([phone]), and informed her that the pt is not going to be discharged today as the pt began to act out and became aggressive. ROGELIO informed her that the pt received an IM which caused the MD to think that the pt is not appropriate for discharge today. ROGELIO then transferred the pt to the nurses and informed her that she would message the MD to call her.
--- NOTE | 2020-10-04 13:49 | NUR ---
given injections of haldol,benadryl and ativan.pt. in dining rm. at this time in michi chair.discharge held up for this time.
--- NOTE | 2020-10-04 14:30 | NUR ---
voided,incontinency x1.small amt.
--- NOTE | 2020-10-04 15:00 | NUR ---
with bladder scanner ascertained pt. with residual in one area of>350,in another area>430.
[2020-10-04 16:00] VITALS: BP 139/78
--- NOTE | 2020-10-04 16:00 | NUR ---
received orders from jose eduardo schroederregarding f/c.
--- NOTE | 2020-10-04 18:56 | NUR ---
discharge delayed for now due to agitated behavior earlier.
[2020-10-04 20:00] VITALS: BP 100/63
--- NOTE | 2020-10-04 21:00 | NUR ---
GPS RN NOTE PT IN G/C VERY RESTLESS AND AGGRESSIVE, ATIVAN 1 MG PO GIVEN. CONTINUE TO MONITOR HIM.
[2020-10-04] MEDS: ATORVASTATIN 40 MG TABLET PO SCH (21:01)
[2020-10-04] MEDS: TAMSULOSIN 0.4 MG CAP.SR.24H PO SCH (21:02)
[2020-10-04] MEDS: METFORMIN XR 500 MG TAB.SR.24H PO SCH (21:02)
[2020-10-04] MEDS: TEMAZEPAM 7.5 MG CAPSULE PO PRN (21:51)
--- NOTE | 2020-10-04 22:00 | NUR ---
GPS RN NOTE PT CALM DOWN BUT UNABLE TO SLEEP, RESTORIL 7.5 MG PO GIVEN ALSO CHECKED RESIDUAL, BLADDER SCANNER SHOW 1000 ML. PT WAS RESTLESS AND AGGRESSIVE EARLIER UNABLE TO SCAN AND INSERT F/C. INSERTED F/C FR 16 1400 ML OUT PUT, YELLOWISH COLOR URNIE NOTED. CONTINUE TO MONITOR HIM.
--- NOTE | 2020-10-04 23:00 | NUR ---
GPS RN NOTE PT FALL BACK TO SLEEP, NO DISTRESS OR DISCOMFORT NOTED. CONTINUE TO SUPERVISE HIM CLOSELY.
--- NOTE | 2020-10-05 06:35 | NUR ---
GPS RN NOTE PT IN BED ASLEEP, NO DISTRESS NOTED. F/C INTACT AND PATENT DRAINING YELLOWISH COLOR URINE. TOTAL OUTPUT FOR THE SHIFT 2100 ML. PT IS CALM AND RELAXED.
[2020-10-05 08:00] VITALS: BP 119/62
[2020-10-05] MEDS: DIVALPROEX SODIUM 125 MG CAP.SPRINK PO SCH ×3 (08:24→16:37)
[2020-10-05] MEDS: BENZTROPINE MESYLATE (1 MG) 1 MG TABLET PO SCH ×3 (08:24→21:52)
[2020-10-05] MEDS: HALOPERIDOL 5 MG TABLET PO SCH ×3 (08:25→16:37)
[2020-10-05] MEDS: LOSARTAN POTASSIUM 50 MG TABLET PO SCH (08:25)
[2020-10-05] MEDS: FINASTERIDE (5 MG) 5 MG TABLET PO SCH (08:25)
[2020-10-05] MEDS: DONEPEZIL 5 MG TABLET PO SCH (08:25)
[2020-10-05] MEDS: MEMANTINE HCL 5 MG TABLET PO SCH (08:25)
--- NOTE | 2020-10-05 09:00 | NUR ---
RN NOTE- PT LETHARGIC THOUGH AWAKENS, CONFUSED, CRUZ CATHETER DRAINING CLEAR YELLOW UA, NO SEDIMENT, NO HEMATURIA, PO INTAKE GOOD, MED COMPLIANT. WENT DIRECTLY BACK TO SLEEP AFTER MEAL
--- NOTE | 2020-10-05 09:55 | NUR ---
DPOA Contact: SW called the pts daughter and DPOA, Zee Dorantes ([phone]), and stated that she heard her voicemail and was wondering what the reason was for wanting to speak to someone in charge of Dr. Briceno. She expressed her complaints and the SW stated that she will receive a call from Dr. Gardner soon.
--- NOTE | 2020-10-05 11:27 | NUR ---
Intervention with Family: Dr. Gardner called the pts daughter and DPOA, Zee Dorantes ([phone]), with the SW present. Dr. Gardner answered the questions of this pts family member at great length and discussed a safer discharge plan that the SW assisted with speaking to the family about.
--- NOTE | 2020-10-05 11:28 | NUR ---
DPOA Contact: SW called the pts daughter and DPOA, Zee Dorantes ([phone]), after the conversation with the MD and stated that she wanted to follow up on the conversation. She stated that her questions were answered and she is going to speak to the pts primary physician to figure out if the recommendation from Dr. Gardner and the SW can be accommodated at [facility]. SW stated that she can call and speak to her on this topic so we can figure out the discharge plan together after she receives information from the primary care.
--- NOTE | 2020-10-05 11:30 | NUR ---
[facility] Election Assistant Contact: SW received a call from [facility] Election Assistant, Tessa ([phone]/ direct line [phone]), who stated that she wanted to discuss the pts treatment plan. SW informed her that the daughter spoke with the MD earlier today and that a plan was recommended for SNF and then discharge home to [place]. SW stated that the family has yet to decide what to do and that the SW will be working with them to create a safe discharge. [facility] SW stated that she will want an update whenever it is possible.
--- NOTE | 2020-10-05 14:50 | NUR ---
RN NOTE- PT ASSISTED TO BR FOR STATED BM. SAT PT ON COMMODE AND PT BEGAN PULLING ON CRUZ CATHETER. QUICKLY INTERVENED. NOTED SOME BLOOD TO CATHETER TUBING BUT GOOD UA FLOW/PATENCY. ASSISTED PT TO JESSICA CHAIR. DIAPER APPLIED. KIT SIMMONS NOTIFIED. CRUZ DRAINING RED-TINGED URINE. CONTINUE TO MONITOR AND EVALUATE
[2020-10-05] MEDS: LORAZEPAM 1 MG TABLET PO PRN (15:43)
--- NOTE | 2020-10-05 15:43 | NUR ---
RN NOTE- PT AGITATED , RESTLESS TRYING TO GET OUT OF CHAIR , REACHING FOR CRUZ CATHETER AGAIN. ATIVAN 1MG GIVEN
[2020-10-05 16:00] VITALS: BP 133/72
--- NOTE | 2020-10-05 18:01 | NUR ---
RN NOTE- KIT SIMMONS ORDERED THAT IF CRUZ CATH / BLADDER SCAN RESIDUAL GREATER THAN 500, REMOVE CATH AND REINSERT NEW CATHETER
[2020-10-05] MEDS ORDERED: diphenhydrAMINE HCL 50 MG/ML VIAL IM STA (18:22)
[2020-10-05] MEDS ORDERED: LORAZEPAM INJ 2 MG/ML VIAL IM STA (18:22)
[2020-10-05] MEDS ORDERED: HALOPERIDOL LACTATE INJ 5 MG/ML VIAL IM STA (18:22)
--- NOTE | 2020-10-05 18:25 | NUR ---
RN-NOTES NOTED PATIENT WITH AGITATED AND COMBATIVE BEHAVIOR PUSHING STAFF WITH BOTH HANDS SCREAMING AND YELLING PULLING HIS CRUZ CATH. UNABLE TO REDIRECT. DR. LEWIS MADE AWARE OF THE BEHAVIOR WITH T.O ORDER OF HALDOL 5MG IM X1,ATIVAN 2MG IM X1 AND BENADRYL 25MG IM X1. NOTED AND CARRIED OUT. WILL ENDORSE TO INCOMING SHIF FOR MONITORING AND CONTINUITY OF CARE.
--- NOTE | 2020-10-05 18:44 | NUR ---
RN NOTE- ATIVAN 2 MG , HALDOL 5 MG AND BENADRYL 25 MG GIVEN IM W STAFF ASSIST. PT COMBATIVE NOT DIRECTABLE AND ASSAULTIVE TO STAFF
--- NOTE | 2020-10-05 20:26 | NUR ---
GPS RN NOTES: RECEIVED PATIENT IN HALLWAY SITTING IN JESSICA CHAIR, AWAKE, A/O X1. DISORIENTED, DISORGANIZED, CONFUSED, PASSIVE, INAPPROPRIATE RESPONSES. NO S/S OF DISTRESS. RESPIRATION EVEN AND UNLABORED WITH EQUAL RISE AND FALL OF THE CHEST, ON ROOM AIR. WILL CONTINUE TO MONITOR Q15 MIN FOR SAFETY, MOOD AND BEHAVIOR.
[2020-10-05 21:12] VITALS: BP 120/80
[2020-10-05] MEDS: METFORMIN XR 500 MG TAB.SR.24H PO SCH (21:52)
[2020-10-05] MEDS: ATORVASTATIN 40 MG TABLET PO SCH (21:52)
[2020-10-05] MEDS: TAMSULOSIN 0.4 MG CAP.SR.24H PO SCH (21:52)
--- NOTE | 2020-10-05 22:30 | NUR ---
GPS RN NOTES: PATIENT WAS RESTLESS AND ANXIOUS. PATIENT HAS 100ML OUTPUT IN CATHETER BAG. CRUZ CATHETER FR 16 REINSERTED WITH 350ML OUTPUT/HEMATURIA AT 2220. PATIENT CLEANED AND DIAPER CHANGED. PATIENT IS CURRENTLY SLEEPING COMFORTABLY IN BED. NO S/S OF DISTRESS. WILL CONTINUE TO MONITOR
--- NOTE | 2020-10-06 06:32 | NUR ---
GPS RN CLOSING NOTES: PATIENT IS CURRENTLY SLEEPING COMFORTABLY IN BED WITH 1:1 SITTER BY THE BED SIDE. TOTAL URINE OUTPUT THIS SHIFT IS 1800. PATIENT SLEPT 7HRS THIS SHIFT. PATIENT CLEANED AND REPOSITIONED NEEDED. CALLED AND DISCUSSED PATIENT UPDATE WITH DAUGHTER GEOVANNA PER DAUGHTER'S REQUEST TO AM SHIFT. NO S/S OF DISTRESS. RESPIRATION EVEN AND UNLABORED WITH EQUAL RISE AND FALL OF THE CHEST, ON ROOM AIR. FLUID GIVEN TOLERATED. ALL PATIENT CARE NEEDS HAVE BEEN MET ANTICIPATED. BED IN LOWEST POSITION AND LOCKED WITH SIDE RAILS UP X2. WILL CONTINUE TO MONITOR FOR SAFETY, MOOD AND BEHAVIOR AND ENDORSE TO AM SHIFT.
[2020-10-06 08:00] VITALS: BP 115/66
[2020-10-06] MEDS: FINASTERIDE (5 MG) 5 MG TABLET PO SCH (08:44)
[2020-10-06] MEDS: HALOPERIDOL 5 MG TABLET PO SCH ×3 (08:44→16:25)
[2020-10-06] MEDS: DIVALPROEX SODIUM 125 MG CAP.SPRINK PO SCH ×3 (08:44→16:25)
[2020-10-06] MEDS: MEMANTINE HCL 5 MG TABLET PO SCH (08:45)
[2020-10-06] MEDS: BENZTROPINE MESYLATE (1 MG) 1 MG TABLET PO SCH ×3 (08:45→21:23)
[2020-10-06] MEDS: DONEPEZIL 5 MG TABLET PO SCH (08:45)
[2020-10-06] MEDS: LORAZEPAM 1 MG TABLET PO PRN ×2 (08:48→19:30)
[2020-10-06] MEDS: LOSARTAN POTASSIUM 50 MG TABLET PO SCH (08:48)
[2020-10-06 16:00] VITALS: BP 109/74
--- NOTE | 2020-10-06 19:31 | NUR ---
RN NOTES: ANXIETY PT. NOTED VERY ANXIOUS ,YELLING NOT STAYING IN BED ATIVAN 1 MG PO PRN GIVEN WILL CONTINUE TO MONITOR.
[2020-10-06 20:23] VITALS: BP 109/58
[2020-10-06] MEDS: METFORMIN XR 500 MG TAB.SR.24H PO SCH (21:23)
[2020-10-06] MEDS: TAMSULOSIN 0.4 MG CAP.SR.24H PO SCH (21:23)
[2020-10-06] MEDS: ATORVASTATIN 40 MG TABLET PO SCH (21:23)
[2020-10-06] MEDS: TEMAZEPAM 7.5 MG CAPSULE PO PRN (23:07)
--- NOTE | 2020-10-06 23:08 | NUR ---
RN NOTES: INSOMNIA PT. UNABLE TO SLEEP RESTORIL 7.5 MG PO PRN GIVEN PER ,PT. REQUEST WILL CONTINUE TO MONITOR.
[2020-10-07 08:00] VITALS: BP 97/63
--- NOTE | 2020-10-07 08:00 | NUR ---
RN OPENING NOTE PATIENT ASLEEP IN BED, EASILY AROUSABLE. A/OX1, NO S/SX OF ACUTE RESPIRATORY DISTRESS NOTED. PATIENT REMAINS CONFUSED AND DISORGANIZED. DISHEVELED APPEARANCE. PATIENT COMPLIANT WITH MED REGIMEN. PT ON 1:1 SITTER FOR SAFETY AND MONITORING. SAFETY PRECAUTIONS IN PLACE. WILL CONTINUE TO MONITOR Q15MIN ROUNDS FOR SAFETY AND BEHAVIOR.
[2020-10-07] MEDS: LOSARTAN POTASSIUM 50 MG TABLET PO SCH (09:00)
[2020-10-07] MEDS: HALOPERIDOL 5 MG TABLET PO SCH ×3 (09:05→16:15)
[2020-10-07] MEDS: DONEPEZIL 5 MG TABLET PO SCH (09:06)
[2020-10-07] MEDS: MEMANTINE HCL 5 MG TABLET PO SCH (09:06)
[2020-10-07] MEDS: DIVALPROEX SODIUM 125 MG CAP.SPRINK PO SCH ×3 (09:06→16:15)
[2020-10-07] MEDS: BENZTROPINE MESYLATE (1 MG) 1 MG TABLET PO SCH ×3 (09:07→21:33)
[2020-10-07] MEDS: FINASTERIDE (5 MG) 5 MG TABLET PO SCH (09:07)
--- NOTE | 2020-10-07 12:38 | NUR ---
DPOA Contact: ROGELIO called the pts daughter and DPOA, Zee Dorantes ([phone]), and informed her that the SW needs to work with her and figure out a plan for transporting the pt. She stated that she is going to pay [employer] to transport the pt to [place] where she is going to look into a transitional care facility for the pt. ROGELIO stated that there are many in this area that the SW can assist with and the pts daughter asked for a list that the SW provided. ROGELIO will follow up with the pts daughter regarding the plan.
[2020-10-07 16:00] VITALS: BP 113/78
[2020-10-07] MEDS: LORAZEPAM 1 MG TABLET PO PRN (16:16)
--- NOTE | 2020-10-07 16:16 | NUR ---
RN NOTE PATIENT AGITATED. MULTIPLE ATTEMPTS TO DE-ESCALATE UNSUCCESSFUL. ATIVAN PO ADMINISTERED. WILL CONTINUE TO MONITOR.
--- NOTE | 2020-10-07 17:30 | NUR ---
RN NOTE- PT AGITATED, AGGRESSIVE, ATTEMPTING TO CLIMB OUT OF CHAIR, PULLING AT CRUZ CATHETER. PO RX PRNS INEFFECTIVE. DR DIAZ NOTIFIED. HALDOL 5 MG, ATIVAN 2 MG AND BENADRYL 25 MG ORDERED STAT IM. COMPLIED W STAFF ASSIST
[2020-10-07] MEDS ORDERED: diphenhydrAMINE HCL 50 MG/ML VIAL IM STA (17:32)
[2020-10-07] MEDS ORDERED: LORAZEPAM INJ 2 MG/ML VIAL IM STA (17:32)
[2020-10-07] MEDS ORDERED: HALOPERIDOL LACTATE INJ 5 MG/ML VIAL IM STA (17:32)
--- NOTE | 2020-10-07 17:40 | NUR ---
RN NOTE PATIENT AGITATED. MULTIPLE ATTEMPTS TO DE-ESCALATE UNSUCCESSFUL. IM HALDOL, ATIVAN, BENADRYL ORDERED AND ADMINISTERED. WILL CONTINUE TO MONITOR FOR SIDE EFFECTS.
--- NOTE | 2020-10-07 18:44 | NUR ---
RN CLOSING NOTE PATIENT AWAKE. A/OX1, NO S/SX OF ACUTE RESPIRATORY DISTRESS NOTED. PATIENT REMAINS CONFUSED, AGITATED, AND DISORGANIZED. DISHEVELED APPEARANCE. PATIENT COMPLIANT WITH MED REGIMEN. F/C PRESENT AND DRAINING. PT ON 1:1 SITTER FOR SAFETY AND MONITORING. SAFETY PRECAUTIONS IN PLACE. WILL CONTINUE TO MONITOR Q15MIN ROUNDS FOR SAFETY AND BEHAVIOR. REPORT TO BE GIVEN TO NIGHT NURSE FOR TIERA.
[2020-10-07 20:16] VITALS: BP 155/56
[2020-10-07 20:21] VITALS: BP 124/74
[2020-10-07] MEDS: ATORVASTATIN 40 MG TABLET PO SCH (21:33)
[2020-10-07] MEDS: TAMSULOSIN 0.4 MG CAP.SR.24H PO SCH (21:33)
[2020-10-07] MEDS: METFORMIN XR 500 MG TAB.SR.24H PO SCH (21:33)
[2020-10-07] MEDS: TEMAZEPAM 7.5 MG CAPSULE PO PRN (21:34)
--- NOTE | 2020-10-08 06:36 | NUR ---
GPS RN CLOSING NOTES: PATIENT IS CURRENTLY SLEEPING COMFORTABLY IN HIS BED WITH 1:1 SITTER BY THE BED SIDE. PATIENT CATHETER INTACT, URINE FLOWING WITHOUT OBSTRUCTION. TOTAL URINE OUTPUT THIS SHIFT IS 1100. PATIENT SLEPT 7HRS THIS SHIFT. PATIENT HAS BEEN CLEANED, SOILED DIAPER CHANGED AND REPOSITIONED. NO S/S OF DISTRESS. RESPIRATION EVEN AND UNLABORED WITH EQUAL RISE AND FALL OF THE CHEST, ON ROOM AIR. FLUID GIVEN TOLERATED. ALL PATIENT CARE NEEDS HAVE BEEN MET ANTICIPATED. BED IN LOWEST POSITION AND LOCKED WITH SIDE RAILS UP X2. WILL CONTINUE TO MONITOR FOR SAFETY, MOOD AND BEHAVIOR AND ENDORSE TO AM
[2020-10-08 08:00] VITALS: BP 104/63
[2020-10-08] MEDS: HALOPERIDOL 5 MG TABLET PO SCH ×3 (09:00→17:31)
[2020-10-08] MEDS: LOSARTAN POTASSIUM 50 MG TABLET PO SCH (11:15)
[2020-10-08] MEDS: DONEPEZIL 5 MG TABLET PO SCH (11:22)
[2020-10-08] MEDS: MEMANTINE HCL 5 MG TABLET PO SCH (11:23)
[2020-10-08] MEDS: BENZTROPINE MESYLATE (1 MG) 1 MG TABLET PO SCH ×3 (11:23→21:35)
[2020-10-08] MEDS: FINASTERIDE (5 MG) 5 MG TABLET PO SCH (11:23)
[2020-10-08] MEDS: DIVALPROEX SODIUM 125 MG CAP.SPRINK PO SCH ×3 (11:23→18:19)
[2020-10-08] MEDS: LORAZEPAM 1 MG TABLET PO PRN ×2 (13:23→17:31)
--- NOTE | 2020-10-08 13:23 | NUR ---
GIVEN ATIVAN FOR RESTLESSNESS.
--- NOTE | 2020-10-08 15:47 | NUR ---
VERY AGITATED AT TIMES.
[2020-10-08 16:00] VITALS: BP 163/92
--- NOTE | 2020-10-08 17:39 | NUR ---
GIVEN ATIVAN 1 MG PO.
--- NOTE | 2020-10-08 17:46 | NUR ---
taking med reluctantly.
[2020-10-08 20:00] VITALS: BP 106/67
[2020-10-08 20:46] VITALS: BP 106/67
[2020-10-08] MEDS: METFORMIN XR 500 MG TAB.SR.24H PO SCH (21:34)
[2020-10-08] MEDS: TAMSULOSIN 0.4 MG CAP.SR.24H PO SCH (21:35)
[2020-10-08] MEDS: ATORVASTATIN 40 MG TABLET PO SCH (21:35)
[2020-10-09 06:43] LABS: BASOPHILS % (AUTO) 0.6 % (0.0-2.0); HEMATOCRIT 36 % (39-51); HEMOGLOBIN 11.8 g/dL (13.5-17.5); LYMPHOCYTES # (AUTO) 1.3 /CMM (0.8-4.8); LYMPHOCYTES % (AUTO) 23.2 % (20.0-44.0); MEAN CORPUSCULAR HGB CONC 32 g/dl (31.0-36.0); MEAN CORPUSCULAR VOLUME 85 fL (80-96); MONOCYTES # (AUTO) 0.4 /CMM (0.1-1.30); MONOCYTES % (AUTO) 7.7 % (2.0-12.0); NEUTROPHILS # (AUTO) 3.6 /CMM (1.8-8.9); NEUTROPHILS % (AUTO) 64.5 % (43.0-81.0); PLATELET COUNT (AUTO) 309 /CMM (150-450); WHITE BLOOD COUNT (AUTO) 5.5 K/uL (4.3-11.0)
--- NOTE | 2020-10-09 06:46 | NUR ---
NERISSA RN CLOSING PATIENT IN BED SLEEPING EASY TO AROUSE. CRUZ CATH IN PLACE DRAINING CLEAR, ORANGE URINE. WITH OUTPUT OF 1000 ML THE WHOLE SHIFT. NO S/S OF DISTRESS FAUSTINO. NOT EXHIBITING SYMPTOMS OF PAIN VIA FLACC. SAFETY KEPT IN PLACE THE WHOLE SHIFT: BED IN LOWEST, LOCKED POSITION; BED ALARM ON. SITTER IN THE ROOM. ALL SCHEDULED MEDS GIVEN. BLOOD WORKS DONE IN THE AM. WILL ENDORSE CARE TO MORNING SHIFT NURSE.
[2020-10-09 06:49] LABS: ALBUMIN 2.6 g/dL (3.4-5.0); BILIRUBIN,TOTAL 0.4 mg/dL (0.2-1.0); CALCIUM, SERUM 8.6 mg/dL (8.5-10.1); CREATININE 0.8 mg/dL (0.6-1.3); MAGNESIUM 2.1 mg/dL (1.8-2.4); POTASSIUM 4.2 mmol/L (3.5-5.1)
[2020-10-09 08:00] VITALS: BP 112/69
[2020-10-09] MEDS: DONEPEZIL 5 MG TABLET PO SCH (09:58)
[2020-10-09] MEDS: HALOPERIDOL 5 MG TABLET PO SCH ×3 (09:58→17:45)
[2020-10-09] MEDS: MEMANTINE HCL 5 MG TABLET PO SCH (09:58)
[2020-10-09] MEDS: LOSARTAN POTASSIUM 50 MG TABLET PO SCH (09:58)
[2020-10-09] MEDS: FINASTERIDE (5 MG) 5 MG TABLET PO SCH (09:58)
[2020-10-09] MEDS: BENZTROPINE MESYLATE (1 MG) 1 MG TABLET PO SCH ×3 (09:58→21:15)
[2020-10-09] MEDS: DIVALPROEX SODIUM 125 MG CAP.SPRINK PO SCH ×3 (10:02→17:44)
[2020-10-09] MEDS ORDERED: diphenhydrAMINE HCL 50 MG/ML VIAL IM STA (11:19)
[2020-10-09] MEDS ORDERED: LORAZEPAM INJ 2 MG/ML VIAL IM/IV STA (11:19)
[2020-10-09] MEDS ORDERED: HALOPERIDOL LACTATE INJ 5 MG/ML VIAL IM STA ×2 (11:22→11:24)
--- NOTE | 2020-10-09 11:26 | NUR ---
Patient agitated , assaultive ,not following directions .Tried to calm patient down ,offered po Ativan ,1:1 interaction with patient but unsuccessful ,patient seen by with new order Ativan 2mg IM ,Haldol 5mg IM and Benadryl 25mg IM ,all orders carried out and given IM injection by primary NURSE at 11:46 no physical hold and patient accept the injection voluntarily .patient refused VS x3 every 15 minutes and VS at 12:46 BP 114/53 , P81, T 98.1 ,R 19, O2 SAT 95% ,no SOB ,no s/s of distress noted patient tolerated injection well ,will continue to monitor .
[2020-10-09 16:00] VITALS: BP 114/53
--- NOTE | 2020-10-09 16:18 | NUR ---
RN NOTE PATIENT IS BECOMING RESTLESS AND AGITATED, ATTEMPTING TO LEAVE THE DEPARTMENT. DR RINCON ORDERED BENADRYL, 25MG, 5MG HALDOL, AND 2MG ATIVAN IM. HELP PO HALDOL AT 1300 PER MD ORDER.
[2020-10-09] MEDS: GLUCERNA SHAKE 237 ML CAN PO SCH (17:45)
[2020-10-09] MEDS: TEMAZEPAM 7.5 MG CAPSULE PO PRN (21:14)
[2020-10-09] MEDS: TAMSULOSIN 0.4 MG CAP.SR.24H PO SCH (21:14)
[2020-10-09] MEDS: ATORVASTATIN 40 MG TABLET PO SCH (21:14)
[2020-10-09] MEDS: METFORMIN XR 500 MG TAB.SR.24H PO SCH (21:14)
--- NOTE | 2020-10-09 21:20 | NUR ---
GPS RN NOTE PT REQUESTED FOR SLEEPING MED, RESTORIL 7.5 MG PO GIVEN. CONTINUE TO MONITOR HIM.
[2020-10-09 21:38] VITALS: BP 119/67
--- NOTE | 2020-10-09 22:20 | NUR ---
GPS RN NOTE PT FALL BACK TO SLEEP NO DISTRESS NOTED. SITTER AT BED SIDE.
--- NOTE | 2020-10-10 | NUR ---
GPS RN NOTE PT REFUSED WEEKLY SKIN ASSESSMENT PICTURES.
[2020-10-10 08:00] VITALS: BP 136/59
[2020-10-10] MEDS: GLUCERNA SHAKE 237 ML CAN PO SCH ×2 (08:04→16:26)
[2020-10-10] MEDS: DONEPEZIL 5 MG TABLET PO SCH (08:21)
[2020-10-10] MEDS: DIVALPROEX SODIUM 125 MG CAP.SPRINK PO SCH ×3 (08:21→16:26)
[2020-10-10] MEDS: MEMANTINE HCL 5 MG TABLET PO SCH (08:22)
[2020-10-10] MEDS: LOSARTAN POTASSIUM 50 MG TABLET PO SCH (08:22)
[2020-10-10] MEDS: HALOPERIDOL 5 MG TABLET PO SCH ×3 (08:22→16:26)
[2020-10-10] MEDS: BENZTROPINE MESYLATE (1 MG) 1 MG TABLET PO SCH ×3 (08:22→21:03)
[2020-10-10] MEDS: FINASTERIDE (5 MG) 5 MG TABLET PO SCH (08:23)
--- NOTE | 2020-10-10 08:55 | NUR ---
DPOA Contact: SW called the pts daughter and DPOA, Zee Jose E ([phone]), and left a voicemail stating that the SW would like to make contact to discuss the pts treatment plan.
--- NOTE | 2020-10-10 09:00 | NUR ---
RN NOTE- PT CONFUSED, MED COMPLIANT, PO INTAKE GOOD, NEEDS ATTENDED 1:1 IN ROOM W PT. CRUZ CATHETER TO GRAVITY W CLEAR YELLOW UA OF MODERATE AMOUNT COLLECTING.
[2020-10-10] MEDS: LORAZEPAM 1 MG TABLET PO PRN ×2 (09:56→20:49)
--- NOTE | 2020-10-10 09:57 | NUR ---
RN NOTE- AGITATED PULLING AT CATHETER. ATIVAN 1 MG GIVEN
--- NOTE | 2020-10-10 13:30 | NUR ---
RN NOTE- PT AGITATED , CLIMBING OUT OF BED EVEN WITH 1:1 SITTER, COMBATIVE W STAFF AND DIFFICULT TO CONTROL. RX INEFFECTIVE . DR DIAZ ORDERED ZYPREXA 5 MG AND ATIVAN 1 MG IM STAT. COMPLIED W STAFF ASSIST.
[2020-10-10] MEDS ORDERED: OLANZAPINE 10 MG VIAL IM STA (13:39)
[2020-10-10] MEDS ORDERED: LORAZEPAM INJ 2 MG/ML VIAL IM STA (13:39)
--- NOTE | 2020-10-10 14:20 | NUR ---
DPOA Contact: Pts daughter and DPOA, Zee Dorantes ([phone]), called the SW and stated that she is arranging a medical transport to come pear picker the pt the following day and she stated that she is going to call the SW back with that information the next day.
--- NOTE | 2020-10-10 15:12 | NUR ---
RN NOTE- PT APPEARS A LITTLE BIT CALMER THOUGH STILL RESTLESS . AFTER EMERGENCY IM ZYPREXA AND ATIVAN
[2020-10-10 16:00] VITALS: BP 110/68
[2020-10-10 20:00] VITALS: BP 109/66
--- NOTE | 2020-10-10 20:49 | NUR ---
GPS-RN NOTES: ANXIETY PATIENT IS ANXIOUS AND RESTLESS. PRN ATIVAN 1MG PO GIVEN. WILL CONTINUE TO MONITOR FOR PATIENT'S SAFETY.
[2020-10-10] MEDS: TAMSULOSIN 0.4 MG CAP.SR.24H PO SCH (21:03)
[2020-10-10] MEDS: METFORMIN XR 500 MG TAB.SR.24H PO SCH (21:03)
[2020-10-10] MEDS: ATORVASTATIN 40 MG TABLET PO SCH (21:03)
[2020-10-11] MEDS: LORAZEPAM 1 MG TABLET PO PRN ×2 (07:47→14:09)
--- NOTE | 2020-10-11 07:48 | NUR ---
RN NOTE- AGITATION BEGAN SOON PT AWAKENED. ATTEMPTED TO CLIMB OVER BED RAILS BEGAN TO BE COMBATIVE . ATIVAN 1 MG GIVEN
[2020-10-11 08:00] VITALS: BP 100/61
[2020-10-11] MEDS: MEMANTINE HCL 5 MG TABLET PO SCH (08:33)
[2020-10-11] MEDS: FINASTERIDE (5 MG) 5 MG TABLET PO SCH (08:33)
[2020-10-11] MEDS: DIVALPROEX SODIUM 125 MG CAP.SPRINK PO SCH ×2 (08:33→12:19)
[2020-10-11 08:34] VITALS: BP 100/61
[2020-10-11] MEDS: BENZTROPINE MESYLATE (1 MG) 1 MG TABLET PO SCH ×2 (08:34→12:19)
[2020-10-11] MEDS: DONEPEZIL 5 MG TABLET PO SCH (08:34)
[2020-10-11] MEDS: HALOPERIDOL 5 MG TABLET PO SCH ×2 (08:34→12:19)
[2020-10-11] MEDS: LOSARTAN POTASSIUM 50 MG TABLET PO SCH (08:34)
[2020-10-11] MEDS: GLUCERNA SHAKE 237 ML CAN PO SCH (08:35)
--- NOTE | 2020-10-11 09:00 | NUR ---
RN NOTE- FOR DC TODAY PT CONFUSED, MED COMPLIANT, PO INTAKE GOOD, NEEDS ATTENDED 1:1 IN ROOM W PT. CRUZ CATHETER TO GRAVITY W CLEAR YELLOW UA OF MODERATE AMOUNT COLLECTING.
--- NOTE | 2020-10-11 09:32 | NUR ---
DPOA Contact: SW called the pts daughter and DPOA, Zee Dorantes ([phone]), and inquired about the pts transportation time and she stated that the transport was going to arrive around 2pm.
--- NOTE | 2020-10-11 11:15 | NUR ---
RN NOTE- ATTEMPTING TO OBTAIN RX FOR PT TO UTILIZE DURING NEXT 24 HRS BEFORE HES TAKEN TO SNF IN [place]. [facility] COULDN'T FILL DUE TO MEDICARE NOT COVERING HIS PRESCRIPTIONS. SPOKE W OUR PHARMACY AND THEY DON'T SEND PTS W RX. SPOKE W FAMILY, CALLED [facility] IN [place] AND THEY HAVE HIM IN THE SYSTEM. FAXED RX TO [facility]
--- NOTE | 2020-10-11 14:07 | NUR ---
Discharge Note: Pt will be discharged to his daughters house located [id number] [place], [place] ([phone]). Pts daughter, Zee Dorantes ([phone]), arranged a medical transport for the pt which will arrive at 2pm. Pts daughter will arrive to the hospital and ride with the pt back to [place]. Pts daughter also secured caregivers to watch the pt in the home and is currently working on hiring nurses for medication management as well as looking into a nursing facility in [place]. Pt was referred to be under the care of [facility], for psychiatry, located at [address] [place] [address]; and will be under the care of lead front end developer, Dr. Silvana Pizarro, located at [address] [place] [address]; via telehealth. Pts multidisciplinary exit care form was signed and a copy was given to the pt.
--- NOTE | 2020-10-11 14:10 | NUR ---
RN NOTE - PT CLEANED UP, BATHED AND READIED FOR DC, PT AGITATED W PHOTOS FOR SKIN CARE ISSUES (SCABS BRUISE) . PT BECAME COMBATIVE AND NOT DIRECTABLE, REFUSING FURTHER COOPERATION. DISCONTINUED SKIN CHECK AND GAVE ATIVAN 1 MG
--- NOTE | 2020-10-11 15:45 | NUR ---
RN NOTE- DISCHARGE/ FAMILY AT FACILITY TO ACCOMPANY PT BACK TO [place] . AMBULANCE STAFF ON HAND. DC INSTRUCTIONS REVIEWED W STAFF AND FAMILY. VERBALIZED UNDERSTANDING. RX CALLED AND FAXED TO [facility] IN [place] PER FAMILY INSTRUCTIONS. SKIN CHECK PHOTOS NOT COMPLETED PT WAS LABILE AND OPPOSED. NO VACCINES GIVEN. PT OPPOSED. VS STABLE, ALERT ORIENTED TO SELF ONLY, DISORGANIZED, AND CONFUSED. ID WRISTBAND REMOVED, ALL VALUABLES RETURNED TO PT FAMILY, ESCORTED OFF UNIT BY STAFF.
== END 2020-10-11 15:45 | disposition home or self-care (01) | DRG 885 ==
LOC: GPS 18:33
PROVIDERS: ADMIT Psychiatry & Neurology Psychiatry; ATTEND Nurse Practitioner Acute Care
DX: F29 Unspecified psychosis not due to a substance or known physiological condition (principal); N17.0 Acute kidney failure with tubular necrosis; G93.41 Metabolic encephalopathy; N39.0 Urinary tract infection, site not specified; F03.90 Unspecified dementia, unspecified severity, without behavioral disturbance, psychotic disturbance, mood disturbance, and anxiety; E78.5 Hyperlipidemia, unspecified; E11.9 Type 2 diabetes mellitus without complications; M19.90 Unspecified osteoarthritis, unspecified site; I10 Essential (primary) hypertension; F17.210 Nicotine dependence, cigarettes, uncomplicated; F39 Unspecified mood [affective] disorder; N13.9 Obstructive and reflux uropathy, unspecified; Z85.46 Personal history of malignant neoplasm of prostate; Z86.73 Personal history of transient ischemic attack (TIA), and cerebral infarction without residual deficits; H91.90 Unspecified hearing loss, unspecified ear; Z20.822 Contact with and (suspected) exposure to COVID-19; Z79.84 Long term (current) use of oral hypoglycemic drugs; Z73.6 Limitation of activities due to disability
CPT/HCPCS: 36415; 80048-TC; 80053-TC; 80061-TC; 80164-TC; 81001; 82140-TC; 82570-TC; 82962-TC; 83735-TC; 84155-TC; 84300-TC; 85025-TC; 87081-TC; 87086-TC; 97112-TC; 97116-TC; 97530-TC; J1200; J1630; J2060; J3230; J3490